=== PATIENT | male | born 1970 | race African-American/Black ===

== ENCOUNTER 2016-11-30 12:36 | Emergency (ER) | payer MEDICAID ==
[~2016-11-30] VITALS: Ht 172.7 cm; Wt 180.0 kg
[~2016-11-30 12:36] MED LIST: LACT20SO4 PO; LEVEMIR SQ; LISI-360 PO; METF500 PO; NOVORP2 SQ; TRAD5TAB PO
[2016-11-30 12:37] VITALS: BP 175/101; PULSE 72; RESP 16; TEMP 98.4; O2SAT 99
--- NOTE | 2016-11-30 12:42 | PD ---
Physical Exam Time Seen by Provider: 12:42 Narrative 46 y/o male here with L lower dental pain for one week. Vital signs reviewed. Seen at triage desk. Awaiting bed placement. Data Data Last Documented VS Vital Signs Date Time Temp Pulse Resp B/P (MAP) Pulse Ox O2 Delivery O2 Flow Rate FiO2 11/30/16 12:37 98.4 72 16 175/101 (125) 99 Room Air MDM Medical Record Reviewed: Yes Supervised Visit with DENICE: Danial Francois Nov 30, 2016 12:42
--- NOTE | 2016-11-30 14:57 | PD ---
HPI Chief Complaint: Oral / Dental Pain or Problem Time Seen by Provider: 14:51 Travel History International Travel<30 days: No Contact w/Intl Traveler<30days: No Traveled to known affect area: No History of Present Illness HPI 46-year-old Afro-[place] male with pain in the #20 and 21 tooth. Patient states the pain started about a week ago progressively gotten worse. He says he has sensitivity to hot and cold. Currently the pain is 8 out of 10. Patient having difficulty eating secondary to pain. He denies fever, chills, or difficulty swallowing. Patient has a dentist appointment on December 15. He has no known drug allergies. PFSH Past Medical History Cancer: No Cardiovascular Problems: Yes Diabetes: Yes Diminished Hearing: No Endocrine: No Genitourinary: No Hypertension: Yes Immune Disorder: No Musculoskeletal: No Neurologic: No Psychiatric: No Reproductive: No Respiratory: No PNEUMOCCOCAL Vaccine (Year): 2 Past Surgical History Abdominal Surgery: Yes (APPY) Appendectomy: Yes Other Surgery: Yes Social History Alcohol Use: Yes (rarely) Tobacco Use: No (20 yrs ago) Substance Use: No Allergies-Medications (Allergen,Severity, Reaction): Coded Allergies: No Known Allergies (Verified , 07/31/15) Reported Meds & Prescriptions Reported Meds & Active Scripts Active Lactulose 30 Ml Syrp 30 Ml PO TID PRN Lactulose 30 Ml Syrp 30 Ml PO TID 5 Days Reported Novolin R (Insulin Human Regular) 100 Units/Ml Inj 20 Units SQ DAILY Levemir (Insulin Detemir) Inj 30 Units SQ DAILY Tradjenta (Linagliptin) 5 Mg Tab 5 Mg PO DAILY Lisinopril 10 mg (Lisinopril) 10 Mg Tab 1 Tab PO DAILY Glucophage 500 mg (Metformin HCl) 500 Mg Tab 1,000 Mg PO DAILY Review of Systems Except as stated in HPI: all other systems reviewed are Neg General / Constitutional: No: Fever Eyes: No: Visual changes HENT: Positive: Dental Difficulties, No: Headaches, Vertigo, Lightheadedness, Sore Throat, Rhinitis, Rhinorrhea, Congestion, Nosebleed, Neck Stiffness, Neck Pain, Gingival Bleeding, Ear Discharge, Earache Cardiovascular: No: Chest Pain or Discomfort Respiratory: No: Shortness of Breath Gastrointestinal: No: Abdominal Pain Genitourinary: No: Dysuria Musculoskeletal: No: Pain Skin: No Rash Neurologic: No: Weakness Psychiatric: No: Depression Endocrine: No: Polydipsia Hematologic/Lymphatic: No: Easy Bruising Physical Exam Narrative GENERAL: Patient Is in mild distress SKIN: Warm and dry. Normal color. Normal turgor. No erythema. HEAD: Atraumatic. Normocephalic. Patient is tenderness along the left lower jaw without significant swelling. EYES: Pupils equal and round. No scleral icterus. No injection or drainage. ENT: No nasal bleeding or discharge. Mucous membranes pink and moist. Teeth actually appearing good condition. Pharynx is clear. Airway is patent. Patient has swelling along the left lower gingiva. NECK: Trachea midline. Supple nontender. CARDIOVASCULAR: Regular rate and rhythm. RESPIRATORY: No accessory muscle use. Clear to auscultation. Breath sounds equal bilaterally. MUSCULOSKELETAL: Extremities without clubbing, cyanosis, or edema. No obvious deformities. NEUROLOGICAL: Awake and alert. No obvious cranial nerve deficits. Motor grossly within normal limits. Five out of 5 muscle strength in the arms and legs. Normal speech. PSYCHIATRIC: Appropriate mood and affect; insight and judgment normal. Data Data Last Documented VS Vital Signs Date Time Temp Pulse Resp B/P (MAP) Pulse Ox O2 Delivery O2 Flow Rate FiO2 11/30/16 12:37 98.4 72 16 175/101 (125) 99 Room Air MDM Medical Decision Making Medical Screen Exam Complete: Yes Emergency Medical Condition: Yes Differential Diagnosis Dental caries. Dental pain. Dental abscess. Narrative Course Patient treated with Pen-Vee K 500 mg 4 times a day 10 days. Patient is given ibuprofen 600 mg 4 times a day #40. Patient is given acetaminophen 500 mg 2 tabs every 6 hours when necessary pain # 60. Patient is given Magic mouthwash every 2 hours as directed 120 mL's with 2 refills. Patient follow-up with his dentist as currently scheduled or return if symptoms worsen. Diagnosis Primary Impression: Dental abscess Referrals: Dentist Patient Instructions: Dental Abscess (ED), General Instructions Additional Instructions: Patient treated with Pen-Vee K 500 mg 4 times a day 10 days. Patient is given ibuprofen 600 mg 4 times a day #40. Patient is given acetaminophen 500 mg 2 tabs every 6 hours when necessary pain # 60. Patient is given Magic mouthwash every 2 hours as directed 120 mL's with 2 refills. Patient follow-up with his dentist as currently scheduled or return if symptoms worsen. Med/Other Pt SpecificInfo: Prescription(s) given Disposition: 01 DISCHARGE HOME Condition: Stable Yoandy Zheng Nov 30, 2016 14:57
[2016-11-30] MEDS ORDERED: MAGICADU2 SWISH-SPIT (14:58)
[2016-11-30] MEDS ORDERED: MAPA500T13 PO (14:58)
[2016-11-30] MEDS ORDERED: PENI500T PO (14:58)
[2016-11-30] MEDS ORDERED: IBUP-232 PO (14:58)
== END 2016-11-30 15:10 | disposition home or self-care (01) ==
LOC: NEPK 12:36
DX: K04.7 Periapical abscess without sinus (principal); E11.9 Type 2 diabetes mellitus without complications; I10 Essential (primary) hypertension; Z79.4 Long term (current) use of insulin; Z79.899 Other long term (current) drug therapy
CPT/HCPCS: 99284

== ENCOUNTER 2017-09-21 11:11 | Inpatient (IN) ==
[2017-09-21] MEDS ORDERED: Sod Chloride 0.9% Inj 1,000 ML IV.CONT SCH ×2 (15:45→19:00)
[2017-09-21] MEDS ORDERED: Sod Chloride 0.9% Inj 1,000 ML IV.SIG ONE ×2 (15:54→18:44)
--- NOTE | 2017-09-21 16:00 | ED ---
HPI General Chief Complaint: Abdominal Pain Stated Complaint: Abdominal pain Time Seen by Provider: 09/21/17 15:38 Source: patient, RN notes reviewed and old records reviewed Mode of arrival: ambulatory Limitations: no limitations History of Present Illness HPI narrative: The patient is a super morbidly obese diabetic male with a BMI of 50.8 history of hypertension and diabetes mellitus presenting with complaint of constipation and diffuse abdominal pain. On arrival his sugar was over 500. Claims he is compliant with medications and diet. Has been having constipation and nausea for the past 2 weeks. Has been taking mag citrate with minimal relief of symptoms. Denies smoking alcohol or drugs. Is able to tolerate p.o. intake and is asking actually asking for something to eat MD complaint: abdominal pain Onset (ago): week(s) Pain Consistency: intermittent Location: diffuse Severity: mild Quality: aching and fullness Radiation: none Relieving factors: bowel movement Exacerbating factors: movement Context: history of similar episodes Treatments prior to arrival: other (laxatives) Related Data Home Medications Medication Instructions Recorded Confirmed insulin detemir U-100 [Levemir 30 unit SUB-Q QPM 09/21/17 09/21/17 U-100 Insulin] insulin regular human [Novolin R 20 unit SUB-Q DAILY 09/21/17 09/21/17 Regular U-100 Insuln] lactulose 20 g PO TID 09/21/17 09/21/17 linagliptin [Tradjenta] 5 mg PO QAM 09/21/17 09/21/17 lisinopril 10 mg PO DAILY 09/21/17 09/21/17 metformin [Glucophage] 1,000 mg PO DAILY 09/21/17 09/21/17 Allergies Allergy/AdvReac Type Severity Reaction Status Date / Time No Known Allergies Allergy NONE Uncoded 09/21/17 15:55 Review of Systems ROS Unobtainable All other systems reviewed negative except as stated in HPI Constitutional Denies body ache(s), Reports fatigue, Denies fever(s), Denies headache(s), Reports malaise and Denies weakness ENT Reports system reviewed and no additional complaints, except as docu Respiratory Reports system reviewed and no additional complaints, except as docu Gastrointestinal Reports abdominal pain, Denies belching, Denies melena, Denies hematochezia, Reports change in bowel habits, Reports tenesmus, Denies cramping, Denies diarrhea, Reports nausea, Reports vomiting and Denies hematemesis Genitourinary Reports system reviewed and no additional complaints, except as [facility] Musculoskeletal Reports system reviewed and no additional complaints, except as [facility] Neurologic Reports system reviewed and no additional complaints, except as [facility] Endocrine Reports system reviewed and no additional complaints, except as docu, Reports fatigue, Reports polyphagia and Reports polydipsia [facility] Medical History Medical History Constipation (Acute) Diabetes mellitus (Acute) Hypertension (Acute) Obesity (Acute) Surgical History Surgical History History of appendectomy (Acute) Social History Social History Substance History: No History of Abuse Smoking Status: Former smoker How Often Do You Have a Drink Containing Alcohol: Never Recent Travel in [facility] within the Last 8 Weeks: No Recent Out of Country Travel within the Last 8 Weeks: No Immunization History Tetanus Immunization: <5 Years Hx Influenza Vaccine This Season: No Exam [facility] Head: normocephalic and atraumatic Nose: no nasal discharge and no epistaxis Mouth: moist mucous membranes Eyes Sclera: normal sclerae Pupils: PERRL Neck Neck: trachea midline and no JVD Resp Effort & Inspection: no use of accessory muscles Auscultation: clear to auscultation bilaterally Cardio Rate: regular rate Rhythm: regular rhythm Heart Sounds: no murmurs GI Inspection: non-distended, obesity and striae Palpation: soft and tender (diffuse) Percussion: normal to percussion Auscultation: normal bowel sounds Skin General: dry skin (warm) Neuro General: alert and awake Cranial Nerves: other Speech: speech normal Motor: no movement abnormalities noted Extrem General: normal to inspection, no clubbing, no cyanosis and no edema Left lower extremity: edema (LE BILATERALLY) Details: pitting and 2+ Psych Mood: congruent mood Affect: normal affect Judgment: judgment good Course Reevaluation(s) Reevaluation #1: Patient with marked hyperglycemia no signs of DKA. resting comfortably in no distress requesting something to eat Initial Documented Vital Signs Temperature 97.5 F L 07/19/18 11:22 Pulse Rate 93 H 09/21/17 11:22 Respiratory Rate 16 09/21/17 11:22 Blood Pressure 146/67 H 09/21/17 11:22 Pulse Oximetry 98 09/21/17 11:22 Last Documented Vital Signs Temperature 97.5 F L 09/21/17 11:22 Pulse Rate 88 09/21/17 15:51 Respiratory Rate 16 09/21/17 15:51 Blood Pressure 113/70 09/21/17 15:51 Pulse Oximetry 99 09/21/17 15:51 Critical Care Time Critical Care Time: Yes Total Critical Care Time: 30 Attestation: Aggregate critical care time was 30 minutes. Time to perform other separately billable procedures was not included in the critical care time. My time did not include minutes spent treating any other patients simultaneously or on activities that did not directly contribute to the patient's treatment. The services I provided to this patient were to treat and/or prevent clinically significant deterioration that could result in: permanent disability loss of current living style. I provided critical care services requiring my management, as noted below: Chart data review, documentation time, medication orders and management, vital sign assessments/reviewing monitor data, ordering and reviewing lab tests, ordering and interpreting/reviewing x-rays and diagnostic studies, care of the patient and discussion of the patient with the admitting physicians. Medical Decision Making MDM Narrative Medical decision making narrative: Patient with marked hyperglycemia no signs of DKA. He has a mildly elevated beta hydroxybutyrate however there is no anion gap. Like he he is in need of aggressive fluid resuscitation. Initial sugar 449 troponin negative lipase normal. No signs of infectious process on UA. CT was unremarkable. Stable vitals. Was started on fluids. Subcu insulin was given. Lab Data Lab results reviewed: Yes I reviewed the patient's lab results. Result diagrams: 09/21/17 17:30 09/21/17 17:30 Lab Results 09/21/17 09/21/17 09/21/17 Range/Units 17:30 17:30 17:30 WBC 8.7 (4.0-11.0) th/mm3 RBC 4.82 (4.50-5.90) mil/mm3 Hgb 14.6 (13.0-17.0) gm/dL Hct 44.2 (39.0-51.0) % MCV 91.7 (80.0-100.0) fL MCH 30.3 (27.0-34.0) pg MCHC 33.0 (32.0-36.0) % RDW 13.0 (11.6-17.2) % Plt Count 212 (150-450) th/mm3 MPV 10.5 (7.0-11.0) fL Neut % (Auto) 69.4 (16.0-70.0) % Lymph % (Auto) 20.6 (9.0-44.0) % Nye % (Auto) 7.9 (0.0-8.0) % Eos % (Auto) 1.6 (0.0-4.0) % Baso % (Auto) 0.5 (0.0-2.0) % Neut # (Auto) 6.0 (1.8-7.7) th/mm3 Lymph # (Auto) 1.8 (1.0-4.8) th/mm3 Nye # (Auto) 0.7 (0.0-0.9) th/mm3 Eos # (Auto) 0.1 (0.0-0.4) th/mm3 Baso # (Auto) 0.0 (0.0-0.2) th/mm3 WBC Differential . Differential Comment Auto diff final PT 10.5 (9.8-11.6) sec INR 1.0 Ratio APTT 19.5 L (24.3-30.1) sec Sodium 128 L (136-145) meq/L Potassium 4.9 (3.5-5.1) meq/L Chloride 90 L (98-107) meq/L Carbon Dioxide 25.1 (21.0-32.0) meq/L Anion Gap 13 (5-15) meq/L BUN 16 (7-18) mg/dL Creatinine 1.34 H (0.60-1.30) mg/dL Estimated GFR 70 L (>89) mL/min Random Glucose 449 H (74-106) mg/dL Calcium 9.8 (8.5-10.1) mg/dL Total Bilirubin 0.6 (0.2-1.0) mg/dL Direct Bilirubin 0.1 (0.0-0.2) mg/dL Indirect Bilirubin 0.5 (0.0-0.8) mg/dL AST 20 (15-37) U/L ALT 41 (12-78) U/L Alkaline Phosphatase 106 (45-117) U/L Troponin I Less than 0.02 L (0.02-0.05) ng/mL B-Natriuretic Peptide (0-100) pg/mL Total Protein 8.5 H (6.4-8.2) g/dL Albumin 3.8 (3.4-5.0) g/dL Lipase 107 (73-393) U/L Beta-Hydroxybutyric Acd 1.59 H (0.00-0.39) mmol/L Urine Color (Yellw/Straw) Urine Clarity (Clear) Urine pH (5.0-8.5) Ur Specific [place] (1.002-1.035) Urine Protein (Neg-Trace) mg/dL Urine Glucose (UA) (Negative) mg/dL Urine Ketones (Negative) mg/dL Urine Occult Blood (Negative) Urine Nitrate (Negative) Urine Bilirubin (Negative) Urine Urobilinogen (Less than 2) mg/dL Ur Leukocyte Esterase (Negative) Urine WBC (0-5) /hpf Ur Squamous Epith Cells (0-5) /hpf Micro UA Comment Urine Culture Comments 09/21/17 09/21/17 Range/Units 17:30 18:10 WBC (4.0-11.0) th/mm3 RBC (4.50-5.90) mil/mm3 Hgb (13.0-17.0) gm/dL Hct (39.0-51.0) % MCV (80.0-100.0) fL MCH (27.0-34.0) pg MCHC (32.0-36.0) % RDW (11.6-17.2) % Plt Count (150-450) th/mm3 MPV (7.0-11.0) fL Neut % (Auto) (16.0-70.0) % Lymph % (Auto) (9.0-44.0) % Nye % (Auto) (0.0-8.0) % Eos % (Auto) (0.0-4.0) % Baso % (Auto) (0.0-2.0) % Neut # (Auto) (1.8-7.7) th/mm3 Lymph # (Auto) (1.0-4.8) th/mm3 Nye # (Auto) (0.0-0.9) th/mm3 Eos # (Auto) (0.0-0.4) th/mm3 Baso # (Auto) (0.0-0.2) th/mm3 WBC Differential Differential Comment PT (9.8-11.6) sec INR Ratio APTT (24.3-30.1) sec Sodium (136-145) meq/L Potassium (3.5-5.1) meq/L Chloride (98-107) meq/L Carbon Dioxide (21.0-32.0) meq/L Anion Gap (5-15) meq/L BUN (7-18) mg/dL Creatinine (0.60-1.30) mg/dL Estimated GFR (>89) mL/min Random Glucose (74-106) mg/dL Calcium (8.5-10.1) mg/dL Total Bilirubin (0.2-1.0) mg/dL Direct Bilirubin (0.0-0.2) mg/dL Indirect Bilirubin (0.0-0.8) mg/dL AST (15-37) U/L ALT (12-78) U/L Alkaline Phosphatase (45-117) U/L Troponin I (0.02-0.05) ng/mL B-Natriuretic Peptide Less than 2 (0-100) pg/mL Total Protein (6.4-8.2) g/dL Albumin (3.4-5.0) g/dL Lipase (73-393) U/L Beta-Hydroxybutyric Acd (0.00-0.39) mmol/L Urine Color Yellow (Yellw/Straw) Urine Clarity Clear (Clear) Urine pH 6.0 (5.0-8.5) Ur Specific [place] 1.030 (1.002-1.035) Urine Protein Negative (Neg-Trace) mg/dL Urine Glucose (UA) 500 or greater (Negative) mg/dL Urine Ketones 20 (Negative) mg/dL Urine Occult Blood Negative (Negative) Urine Nitrate Negative (Negative) Urine Bilirubin Negative (Negative) Urine Urobilinogen Less than 2 (Less than 2) mg/dL Ur Leukocyte Esterase Negative (Negative) Urine WBC Less than 1 (0-5) /hpf Ur Squamous Epith Cells 1 (0-5) /hpf Micro UA Comment Culture not ind Urine Culture Comments Culture not ind Imaging Data Radiologist's impression: Abdomen/Pelvis CT 09/21/17 15:45 CONCLUSION: 1. Some diverticular disease of the descending and sigmoid colon without diverticulitis. 2. Otherwise negative. No acute intraperitoneal or pelvic process to explain current clinical symptoms ECG Data Attestation: I personally reviewed and interpreted this ECG as follows: Prior ECG tracings: available for review Interpretation: EKG obtained at 1630 on September 21, 2017 revealed ventricular rate of 79 bpm sinus rhythm left axis deviation OK interval 146 ms QTc 390 ms no signs of acute ischemia or nonspecific ST-T wave abnormality. Discharge Plan Discharge Disposition Patient Disposition: 30 Still Patient Discharge Condition Condition: Stable Discharge Details Diagnosis: Hyperglycemia due to type 2 diabetes mellitus, Constipation, Morbid obesity Physicians Team ED Provider: Yemi Londono Primary Care Provider: Primary Care Amanda Mccoy Attending Provider: Love Munoz Status ED Status: Admitted Observation Patient
--- NOTE | 2017-09-21 17:52 | CT ---
EXAM DATE: 09/21/2017 5:13 PM EDT AGE/SEX: 47 years / Male INDICATIONS: Abdominal pain. CLINICAL DATA: This is the patient's initial encounter. Patient reports that signs and symptoms have been present for 1 day and indicates a pain score of 7/10. MEDICAL/SURGICAL HISTORY: None. None. RADIATION DOSE: 35.89 CTDI (mGy) ; Patient body habitus COMPARISON: [facility] – [place], CT ABDOMEN & PELVIS W CONTRAST, 09/04/2010. . TECHNIQUE: Multiple contiguous axial images were obtained through the abdomen. Images were obtained using multiple row detector helical technique. Using automated exposure control and adjustment of the mA and/or kV according to patient size, radiation dose was kept as low as reasonably achievable to o btain optimal diagnostic quality images. DICOM format image data is available electronically for rev iew and comparison. FINDINGS: Lower Lungs: The visualized lower lungs are clear. Liver: The liver has a homogeneous density without space-occupying lesion. There is no dilation of th e biliary tree. Spleen: Homogeneous density without enlargement. Pancreas: Unremarkable without mass or calcification. Kidneys: Normal in size and shape. No evidence of mass or hydronephrosis. Adrenal Glands: Unremarkable. Aorta: The aorta and proximal iliac vessels are grossly unremarkable without aneurysmal dilation. Bowel/Mesentery: Some diverticular disease of the descending and sigmoid colon without diverticuliti s. Abdominal Wall: Intact. Retroperitoneum: No evidence of adenopathy in the retrocrural, para-aortic, or deep pelvic regions. Bladder: Contours are smooth. Reproductive Organs: No abnormal masses or calcifications seen. Inguinal: The inguinal region is unremarkable without evidence of adenopathy. Bony Structures: Unremarkable. CONCLUSION: 1. Some diverticular disease of the descending and sigmoid colon without diverticulitis. 2. Otherwise negative. No acute intraperitoneal or pelvic process to explain current clinical sympto ms Electronically signed by: Tone Daugherty MD 09/21/2017 5:51 PM EDT
[2017-09-21 17:53] LABS: Baso % (Auto) 0.5 % (0.0-2.0); Eos # (Auto) 0.1 th/mm3 (0.0-0.4); Eos % (Auto) 1.6 % (0.0-4.0); Hematocrit 44.2 % (39.0-51.0); Hemoglobin 14.6 gm/dL (13.0-17.0); Lymph # (Auto) 1.8 th/mm3 (1.0-4.8); Lymph % (Auto) 20.6 % (9.0-44.0); Mean Corpuscular Hemoglobin 30.3 pg (27.0-34.0); Mean Corpuscular Volume 91.7 fL (80.0-100.0); Mean Platelet Volume 10.5 fL (7.0-11.0); Mono # (Auto) 0.7 th/mm3 (0.0-0.9); Mono % (Auto) 7.9 % (0.0-8.0); Neut % (Auto) 69.4 % (16.0-70.0); Platelet Count 212 th/mm3 (150-450); Red Blood Count 4.82 mil/mm3 (4.50-5.90); White Blood Count 8.7 th/mm3 (4.0-11.0)
[2017-09-21 18:04] LABS: Activated Partial Thrombo Time 19.5 sec (24.3-30.1); Prothrombin Time 10.5 sec (9.8-11.6)
[2017-09-21 18:14] LABS: Alanine Aminotransferase 41 U/L (12-78); Albumin 3.8 g/dL (3.4-5.0); Anion Gap 13 meq/L (5-15); Aspartate Aminotransferase 20 U/L (15-37); Blood Urea Nitrogen 16 mg/dL (7-18); Calcium 9.8 mg/dL (8.5-10.1); Carbon Dioxide 25.1 meq/L (21.0-32.0); Chloride 90 meq/L (98-107); Glomerular Filtration Rate 70 mL/min (>89); Glucose,Random 449 mg/dL (74-106); Lipase 107 U/L (73-393); Potassium 4.9 meq/L (3.5-5.1); Sodium 128 meq/L (136-145)
[2017-09-21 18:16] LABS: Alkaline Phosphatase 106 U/L (45-117); Beta Hydroxybutyric Acid 1.59 mmol/L (0.00-0.39); Total Protein 8.5 g/dL (6.4-8.2)
[2017-09-21 18:31] LABS: Bilirubin,Urine Negative (Negative); Clarity,Urine Clear (Clear); Color,Urine Yellow (Yellw/Straw); Glucose,Urine (UA) 500 or Greater mg/dL (Negative); Leukocyte Esterase,Urine Negative (Negative); Nitrite,Urine Negative (Negative); Squamous Epithelial Cell,Urine 1 /hpf (0-5)
[2017-09-21] MEDS ORDERED: Dextrose 50% in Water 50 ML Vial IV.PUSH PRN (18:57)
[2017-09-21] MEDS ORDERED: Bisacodyl 10 MG Supp RECTAL PRN (18:58)
[2017-09-21] MEDS ORDERED: Acetaminophen 325 MG Tablet PO PRN (18:58)
[2017-09-21] MEDS ORDERED: Temazepam 15 MG Capsule PO PRN (18:58)
--- NOTE | 2017-09-21 19:01 | P.HPIM ---
History of Present Illness Primary Care Physician: No Primary Care Physician History of Present Illness: This is a 47-year-old male with a PMH of HTN, DM and Morbid Obesity who presented to the ER with complaints of abdominal pain and constipation x2wks. States he usually has daily bowel movements, but has had difficulty w/ BMs, worse over the last 4-5 days. Had small BM today, +passing gas. Abdominal pain is intermittent, moderate, 6/10, non-radiating, not associated w/ nausea/ vomiting. On arrival, BP 146/67, HR 93, O2 sat 98% on RA, Afebrile. CBC unremarkable. INR 1.0. Na 128. Creatinine 1.34, previously 1.72 on 2015. BS 449. Troponin negative. Lipase normal. UA negative. CT Abdomen/ Pelvis with diverticular disease but no diverticulitis, otherwise negative. Feeling better, asking to eat. - Diagnosis (1) Hyponatremia (2) ALICIA (acute kidney injury) (3) Abdominal pain (4) DM (diabetes mellitus) Review of Systems All other systems reviewed negative except as stated in HPI PMFSH - History History Provided By: Patient - Medical History Medical History: Medical History (Last Reviewed 09/21/17 @ 15:58 by Yemi Londono DO) Constipation Diabetes mellitus Hypertension Obesity - Surgical History Surgical History: Surgical History (Last Reviewed 09/21/17 @ 15:58 by Yemi Londono DO) History of appendectomy - Tobacco History Smoking Status: Former smoker - Alcohol History How Often Do You Have a Drink Containing Alcohol: Never - Substance Use History Substance History: No History of Abuse - Travel History Recent Travel in the [place] Within the Last 8 Weeks: No Recent Travel Out of the Country Within the Last 8 Weeks: No - Immunization History Tetanus Immunization: <5 Years Hx Influenza Vaccine This Season: No Medications and Allergies Active Medications: Active Medications Acetaminophen (Tylenol) 650 mg PO Q4H PRN PRN Reason: Temp > 100.4 Al Hydroxide/Mg Hydroxide (Milk Of Magnesia Liq) 30 ml PO Q12H PRN PRN Reason: Mild Constipation Bisacodyl (Dulcolax Supp) 10 mg RECTAL DAILY PRN PRN Reason: SEVERE CONSITIPATION Dextrose (D50w Vial) 50 ml IV.PUSH UNSCH PRN PRN Reason: PER HYPOGLYCEMIA PROTOCOL Glucagon (Glucagon Inj) 1 mg OTHER PRN PRN PRN Reason: for Hypoglycemia Protocol Sodium Chloride (Ns Inj) 1,000 mls @ 200 mls/hr IV.CONT .Q5H KATE Stop: 09/21/17 20:44 Last Admin: 09/21/17 17:37 Dose: 125 mls/hr Sodium Chloride (Ns Inj) 1,000 mls @ 100 mls/hr IV.CONT .Q10H KATE Insulin Aspart (Novolog Insulin Correctional Sugar Inj) 0 unit SQ ACHS KATE; Protocol Insulin Detemir (Levemir Inj) 30 unit SQ QPM KATE Lactulose (Lactulose Liq) ml PO TID KATE Metoclopramide HCl (Reglan Inj) 5 mg IV.PUSH Q6HR PRN; Protocol PRN Reason: NAUSEA OR VOMITING Senna/Docusate Sodium ([place]-Colace) 1 tab PO BID KATE Sennosides (Senokot) 17.2 mg PO Q12H PRN PRN Reason: Moderate Constipation Sodium Chloride (Ns Flush) 2 ml IV.FLUSH PRN PRN PRN Reason: FLUSH AFTER USING IV ACCESS Temazepam (Restoril) 15 mg PO HS PRN PRN Reason: INSOMNIA Allergies Allergy/AdvReac Type Severity Reaction Status Date / Time No Known Allergies Allergy NONE Uncoded 09/21/17 15:55 Home Medications Medication Instructions Recorded Confirmed Type insulin detemir U-100 [Levemir 30 unit SUB-Q QPM 09/21/17 09/21/17 History U-100 Insulin] insulin regular human [Novolin R 20 unit SUB-Q DAILY 09/21/17 09/21/17 History Regular U-100 Insuln] lactulose 20 g PO TID 09/21/17 09/21/17 History linagliptin [Tradjenta] 5 mg PO QAM 09/21/17 09/21/17 History lisinopril 10 mg PO DAILY 09/21/17 09/21/17 History metformin [Glucophage] 1,000 mg PO DAILY 09/21/17 09/21/17 History Exam Vital signs: Vital Signs 09/21/17 11:22 09/21/17 15:51 Temperature 97.5 F L Pulse Rate 93 H 88 Respiratory Rate 16 16 Blood Pressure 146/67 H 113/70 Pulse Oximetry 98 99 Intake & Output 09/21/17 09/21/17 09/22/17 06:59 18:59 06:59 Intake Total 1000 / 1000 Balance 1000 / 1000 Weight 158.757 kg Intake: IV 1000 / 1000 NS Inj 1,000 ML @ Wide Open IV. 1000 / 1000 SIG BOLUS ONE Rx#:[id number] Narrative: PE: GENERAL: Middle-aged morbidly obese black male in no acute distress. HEENT: PERRLA, EOMI. No scleral icterus or conjunctival pallor. No lid lag or facial droop. CARDIOVASCULAR: Regular rate and rhythm. No obvious murmurs to auscultation. No chest tenderness to palpation. RESPIRATORY: No obvious rhonchi or wheezing. Clear to auscultation. Breath sounds equal bilaterally. GASTROINTESTINAL: Abdomen soft, non-tender, nondistended. BS normal. MUSCULOSKELETAL: Extremities without clubbing, cyanosis, or edema. No obvious deformities. NEUROLOGICAL: Awake, alert and oriented x4. No focal neurologic deficits. Moving both upper and lower extremities spontaneously. Results - Labs CBC & Chem 7: 09/21/17 17:30 09/21/17 17:30 Labs: Short CBC 09/21/17 Range/Units 17:30 WBC 8.7 (4.0-11.0) th/mm3 Hgb 14.6 (13.0-17.0) gm/dL Hct 44.2 (39.0-51.0) % Plt Count 212 (150-450) th/mm3 BMP 09/21/17 17:30 Sodium 128 L Potassium 4.9 Chloride 90 L Carbon Dioxide 25.1 BUN 16 Creatinine 1.34 H Calcium 9.8 Cardiac Enzymes 09/21/17 Range/Units 17:30 Troponin I Less than 0.02 L (0.02-0.05) ng/mL Liver Function 09/21/17 Range/Units 17:30 Total Bilirubin 0.6 (0.2-1.0) mg/dL Direct Bilirubin 0.1 (0.0-0.2) mg/dL AST 20 (15-37) U/L ALT 41 (12-78) U/L Alkaline Phosphatase 106 (45-117) U/L Albumin 3.8 (3.4-5.0) g/dL Urine 09/21/17 Range/Units 18:10 Urine Color Yellow (Yellw/Straw) Urine Clarity Clear (Clear) Urine pH 6.0 (5.0-8.5) Ur Specific [place] 1.030 (1.002-1.035) Urine Protein Negative (Neg-Trace) mg/dL Urine Glucose (UA) 500 or greater (Negative) mg/dL - Imaging Impressions Abdomen/Pelvis CT 09/21/17 15:45 CONCLUSION: 1. Some diverticular disease of the descending and sigmoid colon without diverticulitis. 2. Otherwise negative. No acute intraperitoneal or pelvic process to explain current clinical symptoms Caprini VTE Risk Assessment Caprini VTE Risk Assessment: Moderate/High Risk (score >= 2) Caprini Risk Assessment Model: Point Value = 1 Point Value = 2 Point Value = 3 Point Value = 5 Age 41-60 Minor surgery BMI > 25 kg/m2 Swollen legs Varicose veins or History of unexplained or recurrent spontaneous Oral contraceptives or hormone replacement Sepsis (< 1 month) Serious lung disease, including pneumonia (< 1 month) Abnormal pulmonary function Acute myocardial infarction Congestive heart failure (< 1 month) History of inflammatory bowel disease Medical patient at bed rest Age 61-74 Arthroscopic surgery Major open surgery (> 45 min) Laparoscopic surgery (> 45 min) Malignancy Confined to bed (> 72 hours) Immobilizing plaster cast Central venous access Age >= 75 History of VTE Family history of VTE Factor V Leiden Prothrombin [id number] Lupus anticoagulant Anticardiolipin antibodies Elevated serum homocysteine Heparin-induced thrombocytopenia Other congenital or acquired thrombophilia Stroke (< 1 month) Elective arthroplasty Hip, pelvis, or leg fracture Acute spinal cord injury (< 1 month) Prophylaxis Regimen: Total Risk Factor Score Risk Level Prophylaxis Regimen 0-1 Low Early ambulation 2 Moderate Order ONE of the following: *Sequential Compression Device (SCD) *Heparin 5000 units SQ BID 3-4 Higher Order ONE of the following medications: *Heparin 5000 units SQ TID *Enoxaparin/Lovenox 40 mg SQ daily (WT < 150 kg, CrCl > 30 mL/min) *Enoxaparin/Lovenox 30 mg SQ daily (WT < 150 kg, CrCl > 10-29 mL/min) *Enoxaparin/Lovenox 30 mg SQ BID (WT < 150 kg, CrCl > 30 mL/min) AND/OR *Sequential Compression Device (SCD) 5 or more Highest Order ONE of the following medications: *Heparin 5000 units SQ TID (Preferred with Epidurals) *Enoxaparin/Lovenox 40 mg SQ daily (WT < 150 kg, CrCl > 30 mL/min) *Enoxaparin/Lovenox 30 mg SQ daily (WT < 150 kg, CrCl > 10-29 mL/min) *Enoxaparin/Lovenox 30 mg SQ BID (WT < 150 kg, CrCl > 30 mL/min) AND *Sequential Compression Device (SCD) Assessment and Plan - Assessment (1) Hyponatremia Code(s): E87.1 - Hypo-osmolality and hyponatremia Status: Acute (2) ALICIA (acute kidney injury) Code(s): N17.9 - Acute kidney failure, unspecified Status: Acute (3) Abdominal pain Code(s): R10.9 - Unspecified abdominal pain Status: Acute (4) DM (diabetes mellitus) Code(s): E11.9 - Type 2 diabetes mellitus without complications Status: Acute - Plan A/P: 1. Hyponatremia: Na 128, likely due to dehydration, IVF for hydration, repeat labs in am. Monitor I/O. U/a negative for UTI. 2. Abdominal Pain: w/ constipation, BM today, CT Abd/Pelvis w/ no acute findings, no evidence of obstruction, images reviewed by me. Analgesics/ antiemetics as needed. Lactulose for constipation, Dulcolax prn. 3. ALICIA: Creatinine 1.34, previously 1.72 on 07/31/15, IVF for hydration, repeat labs in am, monitor I/O. 4. DM: Uncontrolled. BS 449 on arrival, check Hgb A1c, sliding scale w/ Accu- cheks, resume home Levemir 5. DVT Prophylaxis: Heparin sq 6. Social work for d/c planning as needed. 7. Case discussed w/ ER physician at length, labs/records/imaging reviewed by me.
[2017-09-21] MEDS ORDERED: Morphine Inj 4 MG/ML Vial IV.PUSH PRN (19:36)
[2017-09-21] MEDS ORDERED: Insulin NovoLOG Aspart Correctional Sugar Inj SQ SCH (21:00)
[2017-09-21] MEDS: Senna/Docusate Sodium 8.6/50 MG Tablet PO SCH (22:45)
[2017-09-21] MEDS: Heparin - SQ 10,000 UNITS/ML Vial SQ SCH (22:45)
[2017-09-22 07:12] LABS: Baso % (Auto) 0.6 % (0.0-2.0); Eos # (Auto) 0.2 th/mm3 (0.0-0.4); Eos % (Auto) 2.8 % (0.0-4.0); Hematocrit 42.8 % (39.0-51.0); Hemoglobin 13.8 gm/dL (13.0-17.0); Lymph # (Auto) 1.6 th/mm3 (1.0-4.8); Lymph % (Auto) 23.2 % (9.0-44.0); Mean Corpuscular HGB Conc 32.3 % (32.0-36.0); Mean Corpuscular Hemoglobin 29.3 pg (27.0-34.0); Mean Corpuscular Volume 90.6 fL (80.0-100.0); Mono # (Auto) 0.6 th/mm3 (0.0-0.9); Mono % (Auto) 9.4 % (0.0-8.0); Neut # (Auto) 4.3 th/mm3 (1.8-7.7); Platelet Count 205 th/mm3 (150-450); Red Blood Count 4.72 mil/mm3 (4.50-5.90); Red Cell Distribution Width 13.3 % (11.6-17.2); White Blood Count 6.7 th/mm3 (4.0-11.0)
[2017-09-22 07:43] LABS: Alanine Aminotransferase 39 U/L (12-78); Albumin 3.5 g/dL (3.4-5.0); Alkaline Phosphatase 89 U/L (45-117); Anion Gap 10 meq/L (5-15); Aspartate Aminotransferase 17 U/L (15-37); Blood Urea Nitrogen 15 mg/dL (7-18); Calcium 8.7 mg/dL (8.5-10.1); Chloride 99 meq/L (98-107); Glomerular Filtration Rate Greater Than 89 mL/min (>89); Glucose,Random 344 mg/dL (74-106); Potassium 4.3 meq/L (3.5-5.1); Sodium 135 meq/L (136-145); Total Protein 7.7 g/dL (6.4-8.2)
[2017-09-22] MEDS: Senna/Docusate Sodium 8.6/50 MG Tablet PO SCH (08:46)
[2017-09-22] MEDS: Insulin NovoLOG Aspart Correctional Sugar Inj SQ SCH ×2 (08:46→12:22)
[2017-09-22] MEDS: Heparin - SQ 10,000 UNITS/ML Vial SQ SCH (08:49)
--- NOTE | 2017-09-22 10:27 | ECG ---
Date Performed: 09/21/2017 Time Performed: 16:30:00 PTAGE: 47 years EKG: Sinus rhythm NORMAL ECG PREVIOUS TRACING 07/25/2015 18.15 Since the previous tracing, no significant change noted DOCTOR: Denise Tran Interpretating Date/Time 09/22/2017 10:26:52
[2017-09-22 10:50] VITALS: RESP 16
[2017-09-22 12:21] VITALS: BP 129/61; PULSE 93; TEMP 97.8; O2SAT 99
--- NOTE | 2017-09-22 14:25 | P.PN ---
Subjective Interval history: Follow-up for constipation, diabetes mellitus. Patient is currently doing well. Sitting in his chair. No chest pain, shortness of breath, fever or chills. Physical Exam Vital signs: Vital Signs 09/21/17 15:51 09/21/17 20:00 09/22/17 00:00 Temperature 98.1 F 97.3 F L Pulse Rate 88 82 81 Respiratory Rate 16 18 18 Blood Pressure 113/70 120/76 106/46 L Pulse Oximetry 99 98 97 09/22/17 02:00 09/22/17 04:00 09/22/17 08:00 Temperature 97.6 F 97.4 F L Pulse Rate 84 82 Respiratory Rate 15 18 16 Blood Pressure 116/68 130/67 Pulse Oximetry 96 94 L 09/22/17 12:00 Temperature 97.8 F Pulse Rate 93 H Respiratory Rate 16 Blood Pressure 129/61 Pulse Oximetry 99 Intake & Output 09/21/17 09/22/17 09/22/17 18:59 06:59 18:59 Intake Total 1000 / 1000 100 / 100 Balance 1000 / 1000 100 / 100 Weight 158.757 kg 158.757 kg Intake: IV 1000 / 1000 NS Inj 1,000 ML @ Wide Open IV. 1000 / 1000 SIG BOLUS ONE Rx#:[id number] Oral 100 / 100 Other: # Voids 2 Date of Last Bowel Movement 09/21/17 09/22/17 Weight On Admission 158.757 kg Narrative: GENERAL: Alert, oriented 3, NAD, morbidly obese. SKIN: Warm and dry. HEAD: Normocephalic. EYES: No scleral icterus. No injection or drainage. NECK: Supple, trachea midline. No JVD or lymphadenopathy. CARDIOVASCULAR: Regular rate and rhythm without murmurs, gallops, or rubs. RESPIRATORY: Breath sounds equal bilaterally. No accessory muscle use. GASTROINTESTINAL: Abdomen soft, non-tender, nondistended. MUSCULOSKELETAL: No cyanosis, or edema. BACK: Nontender without obvious deformity. No CVA tenderness. Results - Labs CBC & Chem 7: 09/22/17 06:03 09/22/17 06:03 Laboratory Results - last 24 hr 09/21/17 09/21/17 09/21/17 17:30 17:30 17:30 WBC 8.7 RBC 4.82 Hgb 14.6 Hct 44.2 MCV 91.7 MCH 30.3 MCHC 33.0 RDW 13.0 Plt Count 212 MPV 10.5 Neut % (Auto) 69.4 Lymph % (Auto) 20.6 [place] % (Auto) 7.9 Eos % (Auto) 1.6 Baso % (Auto) 0.5 Neut # (Auto) 6.0 Lymph # (Auto) 1.8 [place] # (Auto) 0.7 Eos # (Auto) 0.1 Baso # (Auto) 0.0 WBC Differential . Differential Comment Auto diff final PT 10.5 INR 1.0 APTT 19.5 L Sodium 128 L Potassium 4.9 Chloride 90 L Carbon Dioxide 25.1 Anion Gap 13 BUN 16 Creatinine 1.34 H Estimated GFR 70 L POC Glucose Random Glucose 449 H Calcium 9.8 Total Bilirubin 0.6 Direct Bilirubin 0.1 Indirect Bilirubin 0.5 AST 20 ALT 41 Alkaline Phosphatase 106 Troponin I Less than 0.02 L B-Natriuretic Peptide Total Protein 8.5 H Albumin 3.8 Lipase 107 Beta-Hydroxybutyric Acd 1.59 H Urine Color Urine Clarity Urine pH Ur Specific [place] Urine Protein Urine Glucose (UA) Urine Ketones Urine Occult Blood Urine Nitrate Urine Bilirubin Urine Urobilinogen Ur Leukocyte Esterase Urine WBC Ur Squamous Epith Cells Micro UA Comment Urine Culture Comments 09/21/17 09/21/17 09/21/17 17:30 18:10 22:07 WBC RBC Hgb Hct MCV MCH MCHC RDW Plt Count MPV Neut % (Auto) Lymph % (Auto) [place] % (Auto) Eos % (Auto) Baso % (Auto) Neut # (Auto) Lymph # (Auto) [place] # (Auto) Eos # (Auto) Baso # (Auto) WBC Differential Differential Comment PT INR APTT Sodium Potassium Chloride Carbon Dioxide Anion Gap BUN Creatinine Estimated GFR POC Glucose 474 H* Random Glucose Calcium Total Bilirubin Direct Bilirubin Indirect Bilirubin AST ALT Alkaline Phosphatase Troponin I B-Natriuretic Peptide Less than 2 Total Protein Albumin Lipase Beta-Hydroxybutyric Acd Urine Color Yellow Urine Clarity Clear Urine pH 6.0 Ur Specific [place] 1.030 Urine Protein Negative Urine Glucose (UA) 500 or greater Urine Ketones 20 Urine Occult Blood Negative Urine Nitrate Negative Urine Bilirubin Negative Urine Urobilinogen Less than 2 Ur Leukocyte Esterase Negative Urine WBC Less than 1 Ur Squamous Epith Cells 1 Micro UA Comment Culture not ind Urine Culture Comments Culture not ind 09/22/17 09/22/17 09/22/17 06:03 06:03 08:22 WBC 6.7 RBC 4.72 Hgb 13.8 Hct 42.8 MCV 90.6 MCH 29.3 MCHC 32.3 RDW 13.3 Plt Count 205 MPV 11.0 Neut % (Auto) 64.0 Lymph % (Auto) 23.2 [place] % (Auto) 9.4 H Eos % (Auto) 2.8 Baso % (Auto) 0.6 Neut # (Auto) 4.3 Lymph # (Auto) 1.6 [place] # (Auto) 0.6 Eos # (Auto) 0.2 Baso # (Auto) 0.0 WBC Differential . Differential Comment Auto diff final PT INR APTT Sodium 135 L Potassium 4.3 Chloride 99 D Carbon Dioxide 26.0 Anion Gap 10 BUN 15 Creatinine 1.06 Estimated GFR Greater than 89 POC Glucose 358 H Random Glucose 344 H D Calcium 8.7 D Total Bilirubin 0.5 Direct Bilirubin Indirect Bilirubin AST 17 ALT 39 Alkaline Phosphatase 89 Troponin I B-Natriuretic Peptide Total Protein 7.7 D Albumin 3.5 Lipase Beta-Hydroxybutyric Acd Urine Color Urine Clarity Urine pH Ur Specific [place] Urine Protein Urine Glucose (UA) Urine Ketones Urine Occult Blood Urine Nitrate Urine Bilirubin Urine Urobilinogen Ur Leukocyte Esterase Urine WBC Ur Squamous Epith Cells Micro UA Comment Urine Culture Comments 09/22/17 12:17 WBC RBC Hgb Hct MCV MCH MCHC RDW Plt Count MPV Neut % (Auto) Lymph % (Auto) [place] % (Auto) Eos % (Auto) Baso % (Auto) Neut # (Auto) Lymph # (Auto) [place] # (Auto) Eos # (Auto) Baso # (Auto) WBC Differential Differential Comment PT INR APTT Sodium Potassium Chloride Carbon Dioxide Anion Gap BUN Creatinine Estimated GFR POC Glucose 394 H Random Glucose Calcium Total Bilirubin Direct Bilirubin Indirect Bilirubin AST ALT Alkaline Phosphatase Troponin I B-Natriuretic Peptide Total Protein Albumin Lipase Beta-Hydroxybutyric Acd Urine Color Urine Clarity Urine pH Ur Specific [place] Urine Protein Urine Glucose (UA) Urine Ketones Urine Occult Blood Urine Nitrate Urine Bilirubin Urine Urobilinogen Ur Leukocyte Esterase Urine WBC Ur Squamous Epith Cells Micro UA Comment Urine Culture Comments - Imaging Impressions Abdomen/Pelvis CT 09/21/17 15:45 CONCLUSION: 1. Some diverticular disease of the descending and sigmoid colon without diverticulitis. 2. Otherwise negative. No acute intraperitoneal or pelvic process to explain current clinical symptoms Assessment and Plan - Assessment (1) Hyponatremia Code(s): E87.1 - Hypo-osmolality and hyponatremia Status: Acute (2) ALICIA (acute kidney injury) Code(s): N17.9 - Acute kidney failure, unspecified Status: Acute (3) Abdominal pain Code(s): R10.9 - Unspecified abdominal pain Status: Acute (4) DM (diabetes mellitus) Code(s): E11.9 - Type 2 diabetes mellitus without complications Status: Acute - Plan This is a 47-year-old male with a PMH of HTN, DM and Morbid Obesity who presented to the ER with complaints of abdominal pain and constipation x2wks. States he usually has daily bowel movements, but has had difficulty w/ BMs, worse over the last 4-5 days. On admission, his BG was also elevated to about 449. Acute kidney injury Hyponatremia - resolved. Na 135. - Creatinine improved to 1.06 Diabetes mellitus - Patient has a PCP and has been to an [facility] before - Encouraged patient to watch his carb intake. - Continue home medications on discharge and follow up with PCP. Constipation - Had BM. He is encouraged to take Miralax or other laxatives at home. Full code. Discharge patient to home Condition on discharge: Improved Regular Diet as tolerated Ad Shelley activity Rx written: Miralax once a day Follow-up with primary care physician within one week.
[2017-09-22 16:15] LABS: Hemoglobin A1c 12.2 % (4.3-6.0)
[2017-09-22] MEDS ORDERED: Insulin Detemir Inj 1,000 UNIT/10 ML Vial SQ SCH (18:00)
== END 2017-09-22 17:27 | disposition home or self-care (01) ==
LOC: NEPC 11:11 → NEDA 11:11 → N06 19:59
PROVIDERS: ADMIT Hospitalist; ATTEND Hospitalist
DX: I10 Essential (primary) hypertension; K59.00 Constipation, unspecified; E86.0 Dehydration; Z79.4 Long term (current) use of insulin; E87.1 Hypo-osmolality and hyponatremia; E11.65 Type 2 diabetes mellitus with hyperglycemia; Z87.891 Personal history of nicotine dependence; E66.01 Morbid (severe) obesity due to excess calories; N17.9 Acute kidney failure, unspecified; Z68.43 Body mass index [BMI] 50.0-59.9, adult

== ENCOUNTER 2017-09-27 11:40 | Observation (INO) ==
[2017-09-27] MEDS ORDERED: Sod Chloride 0.9% Inj 1,000 ML IV.SIG ONE ×2 (14:58)
[2017-09-27] MEDS ORDERED: Dextrose 50% in Water 50 ML Vial IV.PUSH PRN ×2 (14:58→21:38)
--- NOTE | 2017-09-27 15:06 | ED ---
HPI General Chief Complaint: Abdominal Pain Stated Complaint: medical Time Seen by Provider: 09/27/17 14:46 Source: patient Mode of arrival: ambulatory Limitations: no limitations History of Present Illness HPI narrative: The patient is a 47-year-old -[place] male who presents to the emergency department via private vehicle for abdominal pain. The patient states he was recently admitted to the hospital for abdominal pain and hyperglycemia. The patient has been taking his novel and 18 units twice a day and his metformin 1000 mg twice a day. The patient states he took is normal in this morning and then developed periumbilical abdominal pain which is crampy, dull, associated 2 episodes of nausea and vomiting. The patient then checked his blood sugar and noted it was in the 500s. He does have a previous history of appendectomy, denies any history of pancreatitis or biliary colic secondary to gallstones. The patient does have a history of constipation, took magnesium citrate earlier today and had approximately 4-5 bowel movements. He denies any dysuria. The patient's primary physician is Dr. Colón. The symptoms are moderate and there are no current alleviating or exacerbating factors. MD complaint: abdominal pain Onset (ago): hour(s) Pain Consistency: intermittent Location: periumbilical Severity: moderate Severity scale (1-10): 5 Quality: cramping Radiation: none Migration to: no migration Relieving factors: nothing Exacerbating factors: nothing Associated symptoms: nausea and vomiting Related Data Home Medications Medication Instructions Recorded Confirmed insulin detemir U-100 [Levemir 30 unit SUB-Q QPM 09/21/17 09/27/17 U-100 Insulin] insulin regular human [Novolin R 20 unit SUB-Q DAILY 09/21/17 09/27/17 Regular U-100 Insuln] lactulose 20 g PO TID 09/21/17 09/27/17 linagliptin [Tradjenta] 5 mg PO QAM 09/21/17 09/27/17 lisinopril 10 mg PO DAILY 09/21/17 09/27/17 metformin [Glucophage] 1,000 mg PO DAILY 09/21/17 09/27/17 Previous Rx's Medication Instructions Recorded polyethylene glycol 3350 17 g PO DAILY 30 Days each 09/22/17 chlorhexidine gluconate [Peridex] 15 ml MUCOUS MEM BID #473 ml 09/27/17 penicillin V potassium 500 mg PO Q6H 10 Days #40 tab 09/27/17 Allergies Allergy/AdvReac Type Severity Reaction Status Date / Time No Known Allergies Allergy NONE Uncoded 09/21/17 15:55 Review of Systems Except as stated in HPI: all other systems reviewed are negative Constitutional Denies fever(s) Cardiovascular Denies chest pain Respiratory Denies dyspnea Gastrointestinal Reports abdominal pain, Reports cramping, Reports nausea and Reports vomiting Endocrine Reports polydipsia and Reports polyuria [facility] Medical History Medical History Constipation (Acute) Obesity (Acute) Hypertension (Acute) Diabetes mellitus (Acute) Surgical History Surgical History History of appendectomy (Acute) Social History Social History Substance History: No History of Abuse Second Hand Smoke Exposure: No Smoking Status: Never smoker Tobacco Type: Cigarettes How Often Do You Have a Drink Containing Alcohol: Never Recent Travel in [facility] within the Last 8 Weeks: No Recent Out of Country Travel within the Last 8 Weeks: No Exam Narrative Exam Narrative: GENERAL: Awake, alert, pleasant 47-year-old male who appears his stated age and is in no acute respiratory distress. The patient was initially sleeping in the left lateral decubitus position upon entering the room. SKIN: Focused skin assessment warm/dry. HEAD: Atraumatic. Normocephalic. EYES: Pupils equal and round. No scleral icterus. No injection or drainage. ENT: No nasal bleeding or discharge. Mucous membranes pink and moist. NECK: Trachea midline. No JVD. CARDIOVASCULAR: Regular, tachycardic with a heart rate of 100. RESPIRATORY: No accessory muscle use. Clear to auscultation. Breath sounds equal bilaterally. GASTROINTESTINAL: Abdomen soft, obese, no rebound tenderness. No guarding or rigidity. Negative Urena's. No epigastric tenderness. MUSCULOSKELETAL: No obvious deformities. No clubbing. No cyanosis. No edema. NEUROLOGICAL: Awake and alert. No obvious cranial nerve deficits. Motor grossly within normal limits. Normal speech. PSYCHIATRIC: Appropriate mood and affect; insight and judgment normal. Course Initial Documented Vital Signs Temperature 98.9 F 09/27/17 11:43 Pulse Rate 103 H 09/27/17 11:43 Respiratory Rate 22 09/27/17 11:43 Blood Pressure 90/50 L 09/27/17 11:43 Pulse Oximetry 98 09/27/17 11:43 Last Documented Vital Signs Temperature 98.9 F 09/27/17 11:43 Pulse Rate 87 09/27/17 18:20 Respiratory Rate 22 09/27/17 18:40 Blood Pressure 159/78 H 09/27/17 18:20 Pulse Oximetry 98 09/27/17 18:20 Medical Decision Making MDM Narrative Medical decision making narrative: IV was established, labs are drawn and sent, and the patient was placed on cardiac telemetry monitoring and continuous pulse oximetry monitoring. EKG was ordered and interpreted. I reviewed the EMR, the patient was recently hospitalized for hyperglycemia and abdominal pain. Patient had a negative CT of the abdomen and pelvis on 21 September, revealed diverticular disease but no acute diverticulitis. The patient's abdominal exam is benign. VBG was obtained and CMP was sent to lab for anion gap. The patient was administered 2 L of IV fluids. The patient's blood sugar was still elevated, therefore, the patient was administered insulin subcutaneously and the. The patient's blood sugar was evaluated and another hour, was still 356. He was dosed with another dose of insulin. The patient has no evidence of DKA. The patient does have hyperglycemia and apparent insulin resistance. The patient is complaining of a toothache, I inspected the dental pain, he has some right upper mid dental pain around tooth #4 and 5, but no palpable abscess. The patient will be placed on penicillin and Peridex. The patient had his blood sugar reevaluated, was 350, still has elevated blood sugar but no evidence of DKA. The patient appears to have insulin resistance. We had a discussion about 23 hour observation versus discharge home and him going back on his normal insulin regimen and following up with an outdoor adventure instructor. I had a long discussion with the patient regarding appropriate diet, calorie counting , carbohydrate counting, and avoiding sugary drinks and foods. The patient states he had chicken wings last night, he is advised not to each eye ate fried chicken wings. Patient also states he has been eating a lot of fruit watermelon , we had a discussion about appropriate food intake as they are high in sugar content. He is advised to drink more water, eat more baked fish and chicken, and eat more green leafy vegetables as well as calorie count. After a long discussion with the patient is agreed he would be a 23 hour observation, may benefit from discussion with nutrition. The patient does have elevated creatinine to 2.19 with potassium of 5.6 and persistent elevated blood glucose. The patient will be 23 hour observation. The on-call medical service was paged for 23 hour observation. Differential Diagnosis Differential Diagnosis: Differential diagnosis includes hyperglycemia, dehydration, DKA, hyperosmolar non-ketosis, electrolyte abnormality, acute kidney injury, constipation, medication side effect secondary to metformin. Lab Data Result diagrams: 09/27/17 15:40 09/27/17 15:40 Lab Results 09/27/17 09/27/17 09/27/17 Range/Units 15:30 15:40 15:40 WBC 9.2 (4.0-11.0) th/mm3 RBC 4.69 (4.50-5.90) mil/mm3 Hgb 14.1 (13.0-17.0) gm/dL Hct 42.8 (39.0-51.0) % MCV 91.4 (80.0-100.0) fL MCH 30.2 (27.0-34.0) pg MCHC 33.0 (32.0-36.0) % RDW 13.2 (11.6-17.2) % Plt Count 208 (150-450) th/mm3 MPV 10.4 (7.0-11.0) fL Neut % (Auto) 73.9 H (16.0-70.0) % Lymph % (Auto) 17.4 (9.0-44.0) % [place] % (Auto) 7.8 (0.0-8.0) % Eos % (Auto) 0.6 (0.0-4.0) % Baso % (Auto) 0.3 (0.0-2.0) % Neut # (Auto) 6.8 (1.8-7.7) th/mm3 Lymph # (Auto) 1.6 (1.0-4.8) th/mm3 [place] # (Auto) 0.7 (0.0-0.9) th/mm3 Eos # (Auto) 0.1 (0.0-0.4) th/mm3 Baso # (Auto) 0.0 (0.0-0.2) th/mm3 WBC Differential . Differential Comment Auto diff final Puncture Site Patient Temperature VBG pH (7.360-7.400) VBG pCO2 (44-48) mmHG VBG pO2 (35-40) mmHG VBG HCO3 (22-26) mmol/L VBG O2 Saturation (70-76) % VBG O2 Content (9.0-17.0) Vol % VBG Base Excess (-2-2) mmol/L VBG Carboxyhemoglobin (0-4) % VBG Methemoglobin (0-2) % Hemoglobin (12.0-16.0) G/DL O2 Delivery Device Inspired O2 % Critical Value Sodium (136-145) meq/L Potassium (3.5-5.1) meq/L Chloride (98-107) meq/L Carbon Dioxide (21.0-32.0) meq/L Anion Gap (5-15) meq/L BUN (7-18) mg/dL Creatinine (0.60-1.30) mg/dL Estimated GFR (>89) mL/min POC Glucose 511 H* (68-110) mg/dl Random Glucose (74-106) mg/dL Lactic Acid (0.4-2.0) mmol/L Calcium (8.5-10.1) mg/dL Magnesium 2.2 (1.5-2.5) mg/dL Total Bilirubin (0.2-1.0) mg/dL AST (15-37) U/L ALT (12-78) U/L Alkaline Phosphatase (45-117) U/L Troponin I (0.02-0.05) ng/mL Total Protein (6.4-8.2) g/dL Albumin (3.4-5.0) g/dL Lipase 108 (73-393) U/L Beta-Hydroxybutyric Acd (0.00-0.39) mmol/L Urine Color (Yellw/Straw) Urine Clarity (Clear) Urine pH (5.0-8.5) Ur Specific [place] (1.002-1.035) Urine Protein (Neg-Trace) mg/dL Urine Glucose (UA) (Negative) mg/dL Urine Ketones (Negative) mg/dL Urine Occult Blood (Negative) Urine Nitrate (Negative) Urine Bilirubin (Negative) Urine Urobilinogen (Less than 2) mg/dL Ur Leukocyte Esterase (Negative) Urine WBC (0-5) /hpf Ur Squamous Epith Cells (0-5) /hpf Hyaline Casts (0-3) /lpf Micro UA Comment Urine Culture Comments 09/27/17 09/27/17 09/27/17 Range/Units 15:40 15:40 16:04 WBC (4.0-11.0) th/mm3 RBC (4.50-5.90) mil/mm3 Hgb (13.0-17.0) gm/dL Hct (39.0-51.0) % MCV (80.0-100.0) fL MCH (27.0-34.0) pg MCHC (32.0-36.0) % RDW (11.6-17.2) % Plt Count (150-450) th/mm3 MPV (7.0-11.0) fL Neut % (Auto) (16.0-70.0) % Lymph % (Auto) (9.0-44.0) % [place] % (Auto) (0.0-8.0) % Eos % (Auto) (0.0-4.0) % Baso % (Auto) (0.0-2.0) % Neut # (Auto) (1.8-7.7) th/mm3 Lymph # (Auto) (1.0-4.8) th/mm3 [place] # (Auto) (0.0-0.9) th/mm3 Eos # (Auto) (0.0-0.4) th/mm3 Baso # (Auto) (0.0-0.2) th/mm3 WBC Differential Differential Comment Puncture Site Iv Patient Temperature 98.6 VBG pH 7.34 L (7.360-7.400) VBG pCO2 53 H (44-48) mmHG VBG pO2 30 L (35-40) mmHG VBG HCO3 28 H (22-26) mmol/L VBG O2 Saturation 45 L (70-76) % VBG O2 Content 10.7 (9.0-17.0) Vol % VBG Base Excess 2.6 H (-2-2) mmol/L VBG Carboxyhemoglobin 0.8 (0-4) % VBG Methemoglobin 0.5 (0-2) % Hemoglobin 16.9 H (12.0-16.0) G/DL O2 Delivery Device Room air Inspired O2 21 % Critical Value No Sodium 127 L (136-145) meq/L Potassium 5.6 H (3.5-5.1) meq/L Chloride 92 L (98-107) meq/L Carbon Dioxide 25.7 (21.0-32.0) meq/L Anion Gap 9 (5-15) meq/L BUN 30 H (7-18) mg/dL Creatinine 2.19 H (0.60-1.30) mg/dL Estimated GFR 40 L (>89) mL/min POC Glucose (68-110) mg/dl Random Glucose 501 H* (74-106) mg/dL Lactic Acid 2.2 H (0.4-2.0) mmol/L Calcium 9.3 (8.5-10.1) mg/dL Magnesium (1.5-2.5) mg/dL Total Bilirubin 0.6 (0.2-1.0) mg/dL AST 31 (15-37) U/L ALT 50 (12-78) U/L Alkaline Phosphatase 95 (45-117) U/L Troponin I Less than 0.02 L (0.02-0.05) ng/mL Total Protein 8.0 (6.4-8.2) g/dL Albumin 3.7 (3.4-5.0) g/dL Lipase (73-393) U/L Beta-Hydroxybutyric Acd 1.13 H (0.00-0.39) mmol/L Urine Color (Yellw/Straw) Urine Clarity (Clear) Urine pH (5.0-8.5) Ur Specific [place] (1.002-1.035) Urine Protein (Neg-Trace) mg/dL Urine Glucose (UA) (Negative) mg/dL Urine Ketones (Negative) mg/dL Urine Occult Blood (Negative) Urine Nitrate (Negative) Urine Bilirubin (Negative) Urine Urobilinogen (Less than 2) mg/dL Ur Leukocyte Esterase (Negative) Urine WBC (0-5) /hpf Ur Squamous Epith Cells (0-5) /hpf Hyaline Casts (0-3) /lpf Micro UA Comment Urine Culture Comments 09/27/17 09/27/17 09/27/17 Range/Units 16:12 17:30 18:16 WBC (4.0-11.0) th/mm3 RBC (4.50-5.90) mil/mm3 Hgb (13.0-17.0) gm/dL Hct (39.0-51.0) % MCV (80.0-100.0) fL MCH (27.0-34.0) pg MCHC (32.0-36.0) % RDW (11.6-17.2) % Plt Count (150-450) th/mm3 MPV (7.0-11.0) fL Neut % (Auto) (16.0-70.0) % Lymph % (Auto) (9.0-44.0) % [place] % (Auto) (0.0-8.0) % Eos % (Auto) (0.0-4.0) % Baso % (Auto) (0.0-2.0) % Neut # (Auto) (1.8-7.7) th/mm3 Lymph # (Auto) (1.0-4.8) th/mm3 [place] # (Auto) (0.0-0.9) th/mm3 Eos # (Auto) (0.0-0.4) th/mm3 Baso # (Auto) (0.0-0.2) th/mm3 WBC Differential Differential Comment Puncture Site Patient Temperature VBG pH (7.360-7.400) VBG pCO2 (44-48) mmHG VBG pO2 (35-40) mmHG VBG HCO3 (22-26) mmol/L VBG O2 Saturation (70-76) % VBG O2 Content (9.0-17.0) Vol % VBG Base Excess (-2-2) mmol/L VBG Carboxyhemoglobin (0-4) % VBG Methemoglobin (0-2) % Hemoglobin (12.0-16.0) G/DL O2 Delivery Device Inspired O2 % Critical Value Sodium (136-145) meq/L Potassium (3.5-5.1) meq/L Chloride (98-107) meq/L Carbon Dioxide (21.0-32.0) meq/L Anion Gap (5-15) meq/L BUN (7-18) mg/dL Creatinine (0.60-1.30) mg/dL Estimated GFR (>89) mL/min POC Glucose 480 H* 396 H 357 H (68-110) mg/dl Random Glucose (74-106) mg/dL Lactic Acid (0.4-2.0) mmol/L Calcium (8.5-10.1) mg/dL Magnesium (1.5-2.5) mg/dL Total Bilirubin (0.2-1.0) mg/dL AST (15-37) U/L ALT (12-78) U/L Alkaline Phosphatase (45-117) U/L Troponin I (0.02-0.05) ng/mL Total Protein (6.4-8.2) g/dL Albumin (3.4-5.0) g/dL Lipase (73-393) U/L Beta-Hydroxybutyric Acd (0.00-0.39) mmol/L Urine Color (Yellw/Straw) Urine Clarity (Clear) Urine pH (5.0-8.5) Ur Specific [place] (1.002-1.035) Urine Protein (Neg-Trace) mg/dL Urine Glucose (UA) (Negative) mg/dL Urine Ketones (Negative) mg/dL Urine Occult Blood (Negative) Urine Nitrate (Negative) Urine Bilirubin (Negative) Urine Urobilinogen (Less than 2) mg/dL Ur Leukocyte Esterase (Negative) Urine WBC (0-5) /hpf Ur Squamous Epith Cells (0-5) /hpf Hyaline Casts (0-3) /lpf Micro UA Comment Urine Culture Comments 09/27/17 09/27/17 Range/Units 18:25 19:41 WBC (4.0-11.0) th/mm3 RBC (4.50-5.90) mil/mm3 Hgb (13.0-17.0) gm/dL Hct (39.0-51.0) % MCV (80.0-100.0) fL MCH (27.0-34.0) pg MCHC (32.0-36.0) % RDW (11.6-17.2) % Plt Count (150-450) th/mm3 MPV (7.0-11.0) fL Neut % (Auto) (16.0-70.0) % Lymph % (Auto) (9.0-44.0) % [place] % (Auto) (0.0-8.0) % Eos % (Auto) (0.0-4.0) % Baso % (Auto) (0.0-2.0) % Neut # (Auto) (1.8-7.7) th/mm3 Lymph # (Auto) (1.0-4.8) th/mm3 [place] # (Auto) (0.0-0.9) th/mm3 Eos # (Auto) (0.0-0.4) th/mm3 Baso # (Auto) (0.0-0.2) th/mm3 WBC Differential Differential Comment Puncture Site Patient Temperature VBG pH (7.360-7.400) VBG pCO2 (44-48) mmHG VBG pO2 (35-40) mmHG VBG HCO3 (22-26) mmol/L VBG O2 Saturation (70-76) % VBG O2 Content (9.0-17.0) Vol % VBG Base Excess (-2-2) mmol/L VBG Carboxyhemoglobin (0-4) % VBG Methemoglobin (0-2) % Hemoglobin (12.0-16.0) G/DL O2 Delivery Device Inspired O2 % Critical Value Sodium (136-145) meq/L Potassium (3.5-5.1) meq/L Chloride (98-107) meq/L Carbon Dioxide (21.0-32.0) meq/L Anion Gap (5-15) meq/L BUN (7-18) mg/dL Creatinine (0.60-1.30) mg/dL Estimated GFR (>89) mL/min POC Glucose 355 H (68-110) mg/dl Random Glucose (74-106) mg/dL Lactic Acid (0.4-2.0) mmol/L Calcium (8.5-10.1) mg/dL Magnesium (1.5-2.5) mg/dL Total Bilirubin (0.2-1.0) mg/dL AST (15-37) U/L ALT (12-78) U/L Alkaline Phosphatase (45-117) U/L Troponin I (0.02-0.05) ng/mL Total Protein (6.4-8.2) g/dL Albumin (3.4-5.0) g/dL Lipase (73-393) U/L Beta-Hydroxybutyric Acd (0.00-0.39) mmol/L Urine Color Straw (Yellw/Straw) Urine Clarity Clear (Clear) Urine pH 5.0 (5.0-8.5) Ur Specific [place] 1.018 (1.002-1.035) Urine Protein Negative (Neg-Trace) mg/dL Urine Glucose (UA) 500 or greater (Negative) mg/dL Urine Ketones Trace (Negative) mg/dL Urine Occult Blood Negative (Negative) Urine Nitrate Negative (Negative) Urine Bilirubin Negative (Negative) Urine Urobilinogen Less than 2 (Less than 2) mg/dL Ur Leukocyte Esterase Negative (Negative) Urine WBC 1 (0-5) /hpf Ur Squamous Epith Cells 1 (0-5) /hpf Hyaline Casts 1 (0-3) /lpf Micro UA Comment Culture not ind Urine Culture Comments Culture not ind ECG Data EKG Prior to Arrival: No Attestation: I personally reviewed and interpreted this ECG as follows: Interpretation: EKG reveals normal sinus rhythm with a rate of 78. Inverted T waves in lead III. Discharge Plan Discharge Disposition Patient Disposition: 30 Still Patient Discharge Condition Condition: Stable Discharge Details Diagnosis: Hyperglycemia due to type 2 diabetes mellitus, ALICIA (acute kidney injury), Odontalgia, Acute hyperkalemia Physicians Team ED Provider: Awais Purvis Primary Care Provider: Primary Care Amanda Mccoy Rxs /Orders / Referrals /Forms Prescriptions: New penicillin V potassium 500 mg tablet 500 mg PO Q6H 10 Days Qty: 40 RF: 0 chlorhexidine gluconate [Peridex] 0.12 % mouthwash 15 ml MUCOUS MEM BID Qty: 473 RF: 0 No Action metformin [Glucophage] 500 mg Tablet 1,000 mg PO DAILY RF: 0 lisinopril 10 mg Tablet 10 mg PO DAILY RF: 0 insulin regular human [Novolin R Regular U-100 Insuln] 100 unit/mL Solution 20 unit SUB-Q DAILY RF: 0 insulin detemir U-100 [Levemir U-100 Insulin] 100 unit/mL Solution 30 unit SUB-Q QPM RF: 0 linagliptin [Tradjenta] 5 mg Tablet 5 mg PO QAM RF: 0 lactulose 20 gram/30 mL Solution 20 g PO TID RF: 0 polyethylene glycol 3350 17 gram Powder In Packet 17 g PO DAILY 30 Days RF: 11 Discharge Interventions Interventions: Vital Signs Last Done: 09/27/17 18:20 Status ED Status: Pending Admission
[2017-09-27 15:59] LABS: Baso % (Auto) 0.3 % (0.0-2.0); Eos # (Auto) 0.1 th/mm3 (0.0-0.4); Eos % (Auto) 0.6 % (0.0-4.0); Hematocrit 42.8 % (39.0-51.0); Hemoglobin 14.1 gm/dL (13.0-17.0); Lymph # (Auto) 1.6 th/mm3 (1.0-4.8); Lymph % (Auto) 17.4 % (9.0-44.0); Mean Corpuscular Hemoglobin 30.2 pg (27.0-34.0); Mean Corpuscular Volume 91.4 fL (80.0-100.0); Mean Platelet Volume 10.4 fL (7.0-11.0); Mono # (Auto) 0.7 th/mm3 (0.0-0.9); Mono % (Auto) 7.8 % (0.0-8.0); Neut # (Auto) 6.8 th/mm3 (1.8-7.7); Neut % (Auto) 73.9 % (16.0-70.0); Platelet Count 208 th/mm3 (150-450); Red Blood Count 4.69 mil/mm3 (4.50-5.90); Red Cell Distribution Width 13.2 % (11.6-17.2); White Blood Count 9.2 th/mm3 (4.0-11.0)
[2017-09-27 16:10] LABS: VBG Base Excess 2.6 mmol/L (-2-2); VBG Blood Gas Oxygen Content 10.7 Vol % (9.0-17.0); VBG PCO2 53 mmHG (44-48); VBG PH 7.34 (7.360-7.400); VBG PO2 30 mmHG (35-40)
[2017-09-27 16:50] LABS: Magnesium 2.2 mg/dL (1.5-2.5)
[2017-09-27 16:51] LABS: Alanine Aminotransferase 50 U/L (12-78); Albumin 3.7 g/dL (3.4-5.0); Alkaline Phosphatase 95 U/L (45-117); Anion Gap 9 meq/L (5-15); Aspartate Aminotransferase 31 U/L (15-37); Beta Hydroxybutyric Acid 1.13 mmol/L (0.00-0.39); Blood Urea Nitrogen 30 mg/dL (7-18); Calcium 9.3 mg/dL (8.5-10.1); Carbon Dioxide 25.7 meq/L (21.0-32.0); Chloride 92 meq/L (98-107); Glomerular Filtration Rate 40 mL/min (>89); Sodium 127 meq/L (136-145)
[2017-09-27 16:55] LABS: Potassium 5.6 meq/L (3.5-5.1)
[2017-09-27 16:57] LABS: Glucose,Random 501 mg/dL (74-106)
[2017-09-27] MEDS ORDERED: Acetaminophen 325 MG Tablet PO ONE (17:35)
[2017-09-27 18:50] LABS: Bilirubin,Urine Negative (Negative); Clarity,Urine Clear (Clear); Color,Urine Straw (Yellw/Straw); Glucose,Urine (UA) 500 or Greater mg/dL (Negative); Hyaline Casts,Urine 1 /lpf (0-3); Leukocyte Esterase,Urine Negative (Negative); Nitrite,Urine Negative (Negative); Specific Gravity,Urine 1.018 (1.002-1.035); Squamous Epithelial Cell,Urine 1 /hpf (0-5)
[2017-09-27] MEDS ORDERED: Acetaminophen 325 MG Tablet PO PRN (21:35)
[2017-09-27] MEDS: Heparin - SQ 10,000 UNITS/ML Vial SQ SCH (21:41)
--- NOTE | 2017-09-27 22:03 | ECG ---
Date Performed: 09/27/2017 Time Performed: 17:51:01 PTAGE: 47 years EKG: Sinus rhythm POSSIBLE LEFT ATRIAL ENLARGEMENT POSSIBLE LEFT VENTRICULAR HYPERTROPHY ABNORMAL ECG No significant c hange from prior electrocardiogram. PREVIOUS TRACING : 09/21/2017 16.30 DOCTOR: Rober Fontana Interpretating Date/Time 09/27/2017 22:01:54
--- NOTE | 2017-09-27 22:48 | P.HP ---
History of Present Illness Service: [facility] Primary Care Physician: No Primary Care Physician History of Present Illness: 47-year-old male with a past medical history significant for morbid obesity, diabetes mellitus (uncontrolled) and hypertension presents the emergency department for evaluation of abdominal pain. The patient was recently hospitalized for similar symptoms and was found to be hyperglycemic. He reports compliance with his insulin and metformin. Despite that his blood sugar was in the 500s at home. She department his blood sugar was 501. Despite treatment with IV and subcu insulin and IV fluids the patient's blood sugar did not drop below 355. He reports resolution of pain. He denies any chest pain or shortness of breath. No diarrhea. No fevers/chills. No lateralizing signs/symptoms. Review of Systems All other systems reviewed negative except as stated in [facility] - History History Provided By: Patient - Medical History Medical History: Medical History (Last Updated 09/27/17 @ 15:31 by Rosita Butler) Constipation (Acute) Obesity (Acute) Hypertension (Acute) Diabetes mellitus (Acute) - Surgical History Surgical History: Surgical History (Last Updated 09/27/17 @ 15:31 by Rosita Butler) History of appendectomy (Acute) - Tobacco History Second Hand Smoke Exposure: No Smoking Status: Never smoker Tobacco Type: Cigarettes - Alcohol History How Often Do You Have a Drink Containing Alcohol: Never - Substance Use History Substance History: No History of Abuse - Travel History Recent Travel in the [place] Within the Last 8 Weeks: No Recent Travel Out of the Country Within the Last 8 Weeks: No - Immunization History Tetanus Immunization: >5 Years Hx Influenza Vaccine This Season: No Medications and Allergies Active Medications: Active Medications Acetaminophen (Tylenol) 650 mg PO Q4H PRN PRN Reason: Temp > 100.4 Dextrose (D50w Vial) 50 ml IV.PUSH UNSCH PRN PRN Reason: PER HYPOGLYCEMIA PROTOCOL Glucagon (Glucagon Inj) 1 mg OTHER PRN PRN PRN Reason: for Hypoglycemia Protocol Heparin Sodium (Porcine) (Heparin Inj) 5,000 units SQ Q12H KATE Last Admin: 09/27/17 21:41 Dose: Not Given Sodium Chloride (Ns Inj) 1,000 mls @ 100 mls/hr IV.CONT .Q10H KATE Insulin Aspart (Novolog Insulin Correctional Sugar Inj) 0 unit SQ ACHS AND 3AM KATE; Protocol Insulin Detemir (Levemir Inj) 30 unit SQ QPM [facility] Insulin Human Regular (Novolin R Inj) 20 units SQ DAILY [facility] Lactulose (Lactulose Liq) 30 ml PO TID [facility] Lisinopril (Prinivil) 10 mg PO DAILY KATE Metformin HCl (Glucophage) 1,000 mg PO DAILY [facility] Non-Formulary Medication (Linagliptin [Tradjenta]) 5 mg PO QAM [facility] Ondansetron HCl (Zofran Odt) 4 mg PO Q6H PRN PRN Reason: NAUSEA OR VOMITING Polyethylene Glycol (Miralax) 17 gm PO DAILY [facility] Sodium Chloride (Ns Flush) 2 ml IV.FLUSH PRN PRN PRN Reason: FLUSH AFTER USING IV ACCESS Allergies Allergy/AdvReac Type Severity Reaction Status Date / Time No Known Allergies Allergy NONE Uncoded 09/21/17 15:55 Home Medications Medication Instructions Recorded Confirmed Type insulin detemir U-100 [Levemir 30 unit SUB-Q QPM 09/21/17 09/27/17 History U-100 Insulin] insulin regular human [Novolin R 20 unit SUB-Q DAILY 09/21/17 09/27/17 History Regular U-100 Insuln] lactulose 20 g PO TID 09/21/17 09/27/17 History linagliptin [Tradjenta] 5 mg PO QAM 09/21/17 09/27/17 History lisinopril 10 mg PO DAILY 09/21/17 09/27/17 History metformin [Glucophage] 1,000 mg PO DAILY 09/21/17 09/27/17 History Exam Vital signs: Vital Signs 09/27/17 11:43 09/27/17 15:33 09/27/17 15:34 Temperature 98.9 F Pulse Rate 103 H 71 77 Respiratory Rate 22 20 Blood Pressure 90/50 L 121/63 Pulse Oximetry 98 96 96 09/27/17 18:20 09/27/17 18:40 Temperature Pulse Rate 87 Respiratory Rate 22 22 Blood Pressure 159/78 H Pulse Oximetry 98 Intake & Output 09/27/17 09/27/17 09/28/17 06:59 18:59 06:59 Weight 158.757 kg Narrative: Gen.: No acute distress Head: Normocephalic. Atraumatic. EENT: Pupils equal round and reactive to light. Nose without drainage. Airway intact. Throat without injection. Cardiovascular: Regular rate and rhythm. No murmurs, rubs or gallops. Respiratory: Lungs clear to auscultation bilaterally. No wheezes or rhonchi. Abdomen: Soft, nontender, nondistended. No peritoneal signs. Musculoskeletal: No gross deformities. No edema. Skin: No obvious rashes or erythema. Neuro: Sensory and motor grossly intact. Cranial nerves II through XII grossly intact. Results - Labs CBC & Chem 7: 09/27/17 15:40 09/27/17 15:40 Labs: Laboratory Results - last 24 hr 09/27/17 09/27/17 09/27/17 15:30 15:40 15:40 WBC 9.2 RBC 4.69 Hgb 14.1 Hct 42.8 MCV 91.4 MCH 30.2 MCHC 33.0 RDW 13.2 Plt Count 208 MPV 10.4 Neut % (Auto) 73.9 H Lymph % (Auto) 17.4 [place] % (Auto) 7.8 Eos % (Auto) 0.6 Baso % (Auto) 0.3 Neut # (Auto) 6.8 Lymph # (Auto) 1.6 [place] # (Auto) 0.7 Eos # (Auto) 0.1 Baso # (Auto) 0.0 WBC Differential . Differential Comment Auto diff final Puncture Site Patient Temperature VBG pH VBG pCO2 VBG pO2 VBG HCO3 VBG O2 Saturation VBG O2 Content VBG Base Excess VBG Carboxyhemoglobin VBG Methemoglobin Hemoglobin O2 Delivery Device Inspired O2 Critical Value Sodium Potassium Chloride Carbon Dioxide Anion Gap BUN Creatinine Estimated GFR POC Glucose 511 H* Random Glucose Lactic Acid Calcium Magnesium 2.2 Total Bilirubin AST ALT Alkaline Phosphatase Troponin I Total Protein Albumin Lipase 108 Beta-Hydroxybutyric Acd Urine Color Urine Clarity Urine pH Ur Specific [place] Urine Protein Urine Glucose (UA) Urine Ketones Urine Occult Blood Urine Nitrate Urine Bilirubin Urine Urobilinogen Ur Leukocyte Esterase Urine WBC Ur Squamous Epith Cells Hyaline Casts Micro UA Comment Urine Culture Comments 09/27/17 09/27/17 09/27/17 15:40 15:40 16:04 WBC RBC Hgb Hct MCV MCH MCHC RDW Plt Count MPV Neut % (Auto) Lymph % (Auto) [place] % (Auto) Eos % (Auto) Baso % (Auto) Neut # (Auto) Lymph # (Auto) [place] # (Auto) Eos # (Auto) Baso # (Auto) WBC Differential Differential Comment Puncture Site Iv Patient Temperature 98.6 VBG pH 7.34 L VBG pCO2 53 H VBG pO2 30 L VBG HCO3 28 H VBG O2 Saturation 45 L VBG O2 Content 10.7 VBG Base Excess 2.6 H VBG Carboxyhemoglobin 0.8 VBG Methemoglobin 0.5 Hemoglobin 16.9 H O2 Delivery Device Room air Inspired O2 21 Critical Value No Sodium 127 L Potassium 5.6 H Chloride 92 L Carbon Dioxide 25.7 Anion Gap 9 BUN 30 H Creatinine 2.19 H Estimated GFR 40 L POC Glucose Random Glucose 501 H* Lactic Acid 2.2 H Calcium 9.3 Magnesium Total Bilirubin 0.6 AST 31 ALT 50 Alkaline Phosphatase 95 Troponin I Less than 0.02 L Total Protein 8.0 Albumin 3.7 Lipase Beta-Hydroxybutyric Acd 1.13 H Urine Color Urine Clarity Urine pH Ur Specific [place] Urine Protein Urine Glucose (UA) Urine Ketones Urine Occult Blood Urine Nitrate Urine Bilirubin Urine Urobilinogen Ur Leukocyte Esterase Urine WBC Ur Squamous Epith Cells Hyaline Casts Micro UA Comment Urine Culture Comments 09/27/17 09/27/17 09/27/17 16:12 17:30 18:16 WBC RBC Hgb Hct MCV MCH MCHC RDW Plt Count MPV Neut % (Auto) Lymph % (Auto) [place] % (Auto) Eos % (Auto) Baso % (Auto) Neut # (Auto) Lymph # (Auto) [place] # (Auto) Eos # (Auto) Baso # (Auto) WBC Differential Differential Comment Puncture Site Patient Temperature VBG pH VBG pCO2 VBG pO2 VBG HCO3 VBG O2 Saturation VBG O2 Content VBG Base Excess VBG Carboxyhemoglobin VBG Methemoglobin Hemoglobin O2 Delivery Device Inspired O2 Critical Value Sodium Potassium Chloride Carbon Dioxide Anion Gap BUN Creatinine Estimated GFR POC Glucose 480 H* 396 H 357 H Random Glucose Lactic Acid Calcium Magnesium Total Bilirubin AST ALT Alkaline Phosphatase Troponin I Total Protein Albumin Lipase Beta-Hydroxybutyric Acd Urine Color Urine Clarity Urine pH Ur Specific [place] Urine Protein Urine Glucose (UA) Urine Ketones Urine Occult Blood Urine Nitrate Urine Bilirubin Urine Urobilinogen Ur Leukocyte Esterase Urine WBC Ur Squamous Epith Cells Hyaline Casts Micro UA Comment Urine Culture Comments 09/27/17 09/27/17 18:25 19:41 WBC RBC Hgb Hct MCV MCH MCHC RDW Plt Count MPV Neut % (Auto) Lymph % (Auto) [place] % (Auto) Eos % (Auto) Baso % (Auto) Neut # (Auto) Lymph # (Auto) [place] # (Auto) Eos # (Auto) Baso # (Auto) WBC Differential Differential Comment Puncture Site Patient Temperature VBG pH VBG pCO2 VBG pO2 VBG HCO3 VBG O2 Saturation VBG O2 Content VBG Base Excess VBG Carboxyhemoglobin VBG Methemoglobin Hemoglobin O2 Delivery Device Inspired O2 Critical Value Sodium Potassium Chloride Carbon Dioxide Anion Gap BUN Creatinine Estimated GFR POC Glucose 355 H Random Glucose Lactic Acid Calcium Magnesium Total Bilirubin AST ALT Alkaline Phosphatase Troponin I Total Protein Albumin Lipase Beta-Hydroxybutyric Acd Urine Color Straw Urine Clarity Clear Urine pH 5.0 Ur Specific [place] 1.018 Urine Protein Negative Urine Glucose (UA) 500 or greater Urine Ketones Trace Urine Occult Blood Negative Urine Nitrate Negative Urine Bilirubin Negative Urine Urobilinogen Less than 2 Ur Leukocyte Esterase Negative Urine WBC 1 Ur Squamous Epith Cells 1 Hyaline Casts 1 Micro UA Comment Culture not ind Urine Culture Comments Culture not ind Caprini VTE Risk Assessment Caprini VTE Risk Assessment: No/Low Risk (score <= 1) Caprini Risk Assessment Model: Point Value = 1 Point Value = 2 Point Value = 3 Point Value = 5 Age 41-60 Minor surgery BMI > 25 kg/m2 Swollen legs Varicose veins or History of unexplained or recurrent spontaneous Oral contraceptives or hormone replacement Sepsis (< 1 month) Serious lung disease, including pneumonia (< 1 month) Abnormal pulmonary function Acute myocardial infarction Congestive heart failure (< 1 month) History of inflammatory bowel disease Medical patient at bed rest Age 61-74 Arthroscopic surgery Major open surgery (> 45 min) Laparoscopic surgery (> 45 min) Malignancy Confined to bed (> 72 hours) Immobilizing plaster cast Central venous access Age >= 75 History of VTE Family history of VTE Factor V Leiden Prothrombin [id number] Lupus anticoagulant Anticardiolipin antibodies Elevated serum homocysteine Heparin-induced thrombocytopenia Other congenital or acquired thrombophilia Stroke (< 1 month) Elective arthroplasty Hip, pelvis, or leg fracture Acute spinal cord injury (< 1 month) Prophylaxis Regimen: Total Risk Factor Score Risk Level Prophylaxis Regimen 0-1 Low Early ambulation 2 Moderate Order ONE of the following: *Sequential Compression Device (SCD) *Heparin 5000 units SQ BID 3-4 Higher Order ONE of the following medications: *Heparin 5000 units SQ TID *Enoxaparin/Lovenox 40 mg SQ daily (WT < 150 kg, CrCl > 30 mL/min) *Enoxaparin/Lovenox 30 mg SQ daily (WT < 150 kg, CrCl > 10-29 mL/min) *Enoxaparin/Lovenox 30 mg SQ BID (WT < 150 kg, CrCl > 30 mL/min) AND/OR *Sequential Compression Device (SCD) 5 or more Highest Order ONE of the following medications: *Heparin 5000 units SQ TID (Preferred with Epidurals) *Enoxaparin/Lovenox 40 mg SQ daily (WT < 150 kg, CrCl > 30 mL/min) *Enoxaparin/Lovenox 30 mg SQ daily (WT < 150 kg, CrCl > 10-29 mL/min) *Enoxaparin/Lovenox 30 mg SQ BID (WT < 150 kg, CrCl > 30 mL/min) AND *Sequential Compression Device (SCD) Assessment and Plan - Plan Assessment/plan: 1. Diabetes mellitus/hyperglycemia membership sales manager consulted as patient does not understand what foods he should be eating and his blood sugar remains uncontrolled despite medication compliance Continue Novolin and Levemir Holding home metformin for acute kidney injury Sliding-scale insulin Monitor blood glucose 2. Acute kidney injury Creatinine 2.2, baseline 1.0 IV fluid hydration Monitor renal function Blood sugar control as above 3. Hypertension Holding home lisinopril for [place] I Clonidine as needed FEN Diabetic diet Electrolytes: Hyperkalemia, monitor. Hyponatremia secondary to hyperglycemia NS at 150 cc/hour
[2017-09-28] MEDS: Sod Chloride 0.9% Inj 1,000 ML IV.CONT SCH ×4 (00:05→16:52)
[2017-09-28] MEDS: Insulin NovoLOG Aspart Correctional Sugar Inj SQ SCH ×5 (04:01→21:09)
--- NOTE | 2017-09-28 08:30 | P.PN ---
Subjective Interval history: Follow up for hyperglycemia, abdominal pain. The patient reports feeling better today. Reports his lower abdominal pain resolved after he was able to have BM. Denies any nausea/vomiting. Reports continued polyuria and polydipsia. He reports compliance with his medications although has difficulty recalling everything he is on for his diabetes. He states he does Novolin R 15 to 18u twice a day, and also takes levemir but cannot recall his dose. He also reports being on Tradjenta and metformin, unknown doses. He admits to dietary indiscretion. Denies any other medical complaints at this time. Physical Exam Vital signs: Vital Signs 09/27/17 11:43 09/27/17 15:33 09/27/17 15:34 Temperature 98.9 F Pulse Rate 103 H 71 77 Respiratory Rate 22 20 Blood Pressure 90/50 L 121/63 Pulse Oximetry 98 96 96 09/27/17 18:20 09/27/17 18:40 09/28/17 00:00 Temperature 97.8 F Pulse Rate 87 92 H Respiratory Rate 22 22 17 Blood Pressure 159/78 H 117/56 L Pulse Oximetry 98 96 09/28/17 04:00 09/28/17 07:05 Temperature 98.3 F 98.7 F Pulse Rate 84 77 Respiratory Rate 17 16 Blood Pressure 138/73 135/74 Pulse Oximetry 95 95 Intake & Output 09/27/17 09/28/17 09/28/17 18:59 06:59 18:59 Intake Total 3000 / 3000 Balance 3000 / 3000 Weight 158.757 kg Intake: IV 3000 / 3000 NS Inj 1,000 ML @ 150 mls/hr IV 1000 / 1000 .CONT .Q6H40M COUNT INCLUDES THE [facility] Rx#:[id number] NS Inj 1,000 ML @ Wide Open IV. 1999 SIG BOLUS ONE Rx#:[id number] Narrative: GENERAL: Well-nourished, well-developed morbidly obese AA male patient in NAD. SKIN: Warm and dry. No rash. HEENT: Normocephalic. Atraumatic. Pupils equal and round. Mucous membranes pink and moist. NECK: Supple. Trachea midline. CARDIOVASCULAR: Regular rate and rhythm. No murmur appreciated. RESPIRATORY: No accessory muscle use. Clear to auscultation. Breath sounds equal bilaterally. GASTROINTESTINAL: Abdomen soft, non-tender, nondistended. Normoactive bowel sounds x4. MUSCULOSKELETAL: No obvious deformities. Extremities without clubbing, cyanosis , or edema. NEUROLOGICAL: Awake and alert. No obvious cranial nerve deficits. Motor grossly within normal limits. Moving all extremities spontaneously. Normal speech. PSYCHIATRIC: Appropriate mood and affect; insight and judgment normal. Results - Labs CBC & Chem 7: 09/27/17 15:40 09/27/17 15:40 Laboratory Results - last 24 hr 09/27/17 09/27/17 09/27/17 15:30 15:40 15:40 WBC 9.2 RBC 4.69 Hgb 14.1 Hct 42.8 MCV 91.4 MCH 30.2 MCHC 33.0 RDW 13.2 Plt Count 208 MPV 10.4 Neut % (Auto) 73.9 H Lymph % (Auto) 17.4 [place] % (Auto) 7.8 Eos % (Auto) 0.6 Baso % (Auto) 0.3 Neut # (Auto) 6.8 Lymph # (Auto) 1.6 [place] # (Auto) 0.7 Eos # (Auto) 0.1 Baso # (Auto) 0.0 WBC Differential . Differential Comment Auto diff final Puncture Site Patient Temperature VBG pH VBG pCO2 VBG pO2 VBG HCO3 VBG O2 Saturation VBG O2 Content VBG Base Excess VBG Carboxyhemoglobin VBG Methemoglobin Hemoglobin O2 Delivery Device Inspired O2 Critical Value Sodium Potassium Chloride Carbon Dioxide Anion Gap BUN Creatinine Estimated GFR POC Glucose 511 H* Random Glucose Lactic Acid Calcium Magnesium 2.2 Total Bilirubin AST ALT Alkaline Phosphatase Troponin I Total Protein Albumin Lipase 108 Beta-Hydroxybutyric Acd Urine Color Urine Clarity Urine pH Ur Specific [place] Urine Protein Urine Glucose (UA) Urine Ketones Urine Occult Blood Urine Nitrate Urine Bilirubin Urine Urobilinogen Ur Leukocyte Esterase Urine WBC Ur Squamous Epith Cells Hyaline Casts Micro UA Comment Urine Culture Comments 09/27/17 09/27/17 09/27/17 15:40 15:40 16:04 WBC RBC Hgb Hct MCV MCH MCHC RDW Plt Count MPV Neut % (Auto) Lymph % (Auto) [place] % (Auto) Eos % (Auto) Baso % (Auto) Neut # (Auto) Lymph # (Auto) [place] # (Auto) Eos # (Auto) Baso # (Auto) WBC Differential Differential Comment Puncture Site Iv Patient Temperature 98.6 VBG pH 7.34 L VBG pCO2 53 H VBG pO2 30 L VBG HCO3 28 H VBG O2 Saturation 45 L VBG O2 Content 10.7 VBG Base Excess 2.6 H VBG Carboxyhemoglobin 0.8 VBG Methemoglobin 0.5 Hemoglobin 16.9 H O2 Delivery Device Room air Inspired O2 21 Critical Value No Sodium 127 L Potassium 5.6 H Chloride 92 L Carbon Dioxide 25.7 Anion Gap 9 BUN 30 H Creatinine 2.19 H Estimated GFR 40 L POC Glucose Random Glucose 501 H* Lactic Acid 2.2 H Calcium 9.3 Magnesium Total Bilirubin 0.6 AST 31 ALT 50 Alkaline Phosphatase 95 Troponin I Less than 0.02 L Total Protein 8.0 Albumin 3.7 Lipase Beta-Hydroxybutyric Acd 1.13 H Urine Color Urine Clarity Urine pH Ur Specific [place] Urine Protein Urine Glucose (UA) Urine Ketones Urine Occult Blood Urine Nitrate Urine Bilirubin Urine Urobilinogen Ur Leukocyte Esterase Urine WBC Ur Squamous Epith Cells Hyaline Casts Micro UA Comment Urine Culture Comments 09/27/17 09/27/17 09/27/17 16:12 17:30 18:16 WBC RBC Hgb Hct MCV MCH MCHC RDW Plt Count MPV Neut % (Auto) Lymph % (Auto) [place] % (Auto) Eos % (Auto) Baso % (Auto) Neut # (Auto) Lymph # (Auto) [place] # (Auto) Eos # (Auto) Baso # (Auto) WBC Differential Differential Comment Puncture Site Patient Temperature VBG pH VBG pCO2 VBG pO2 VBG HCO3 VBG O2 Saturation VBG O2 Content VBG Base Excess VBG Carboxyhemoglobin VBG Methemoglobin Hemoglobin O2 Delivery Device Inspired O2 Critical Value Sodium Potassium Chloride Carbon Dioxide Anion Gap BUN Creatinine Estimated GFR POC Glucose 480 H* 396 H 357 H Random Glucose Lactic Acid Calcium Magnesium Total Bilirubin AST ALT Alkaline Phosphatase Troponin I Total Protein Albumin Lipase Beta-Hydroxybutyric Acd Urine Color Urine Clarity Urine pH Ur Specific [place] Urine Protein Urine Glucose (UA) Urine Ketones Urine Occult Blood Urine Nitrate Urine Bilirubin Urine Urobilinogen Ur Leukocyte Esterase Urine WBC Ur Squamous Epith Cells Hyaline Casts Micro UA Comment Urine Culture Comments 09/27/17 09/27/17 09/28/17 18:25 19:41 03:55 WBC RBC Hgb Hct MCV MCH MCHC RDW Plt Count MPV Neut % (Auto) Lymph % (Auto) [place] % (Auto) Eos % (Auto) Baso % (Auto) Neut # (Auto) Lymph # (Auto) [place] # (Auto) Eos # (Auto) Baso # (Auto) WBC Differential Differential Comment Puncture Site Patient Temperature VBG pH VBG pCO2 VBG pO2 VBG HCO3 VBG O2 Saturation VBG O2 Content VBG Base Excess VBG Carboxyhemoglobin VBG Methemoglobin Hemoglobin O2 Delivery Device Inspired O2 Critical Value Sodium Potassium Chloride Carbon Dioxide Anion Gap BUN Creatinine Estimated GFR POC Glucose 355 H 385 H Random Glucose Lactic Acid Calcium Magnesium Total Bilirubin AST ALT Alkaline Phosphatase Troponin I Total Protein Albumin Lipase Beta-Hydroxybutyric Acd Urine Color Straw Urine Clarity Clear Urine pH 5.0 Ur Specific [place] 1.018 Urine Protein Negative Urine Glucose (UA) 500 or greater Urine Ketones Trace Urine Occult Blood Negative Urine Nitrate Negative Urine Bilirubin Negative Urine Urobilinogen Less than 2 Ur Leukocyte Esterase Negative Urine WBC 1 Ur Squamous Epith Cells 1 Hyaline Casts 1 Micro UA Comment Culture not ind Urine Culture Comments Culture not ind Assessment and Plan - Plan 47-year-old male with a past medical history significant for morbid obesity, diabetes mellitus (uncontrolled) and hypertension presents the ED for evaluation of abdominal pain. The patient was recently hospitalized for similar symptoms and was found to be hyperglycemic. He reports compliance with his insulin and metformin. Despite that his blood sugar was in the 500s at home. In the ER, his blood sugar was 501. Hyperglycemia with uncontrolled Diabetes mellitus: acute. BG 501 upon arrival. S /p IVF boluses with IV and sq insulin in the ED -hematology nurse educator and writing manager consulted as patient does not understand what foods he should be eating and his blood sugar remains uncontrolled despite medication compliance -Continue Novolin and Levemir -Holding home metformin for acute kidney injury -Medium dose Sliding-scale insulin -Monitor blood glucose -Consult endocrinology Acute kidney injury: Creatinine 2.2, baseline 1.0. Suspect secondary to dehydration with polyuria due to uncontrolled blood glucose. -Continue IV fluid hydration -Avoid nephrotoxins, holding lisinopril and metformin -Monitor renal function Hyperglycemia induced Hyponatremia: acute -giving IVF -should improve with correction of hyperglycemia -repeat labs pending Hypertension: BP fairly well controlled -Holding home lisinopril for ALICIA -Clonidine as needed DVT Prophylaxis: Heparin sq Discharge Planning: Possible discharge tomorrow if BG better controlled and ALICIA improves.
[2017-09-28] MEDS: Polyethylene Glycol 3350 17 GM Packet PO SCH (08:45)
[2017-09-28] MEDS: Heparin - SQ 10,000 UNITS/ML Vial SQ SCH ×2 (08:46→21:10)
[2017-09-28] MEDS ORDERED: Lisinopril 10 MG Tablet PO SCH (09:00)
[2017-09-28] MEDS ORDERED: LINAGLIPTIN 5 MG PO SCH (09:00)
[2017-09-28 13:26] LABS: Baso % (Auto) 0.3 % (0.0-2.0); Eos # (Auto) 0.1 th/mm3 (0.0-0.4); Eos % (Auto) 1.2 % (0.0-4.0); Hematocrit 41.3 % (39.0-51.0); Hemoglobin 13.8 gm/dL (13.0-17.0); Lymph # (Auto) 1.5 th/mm3 (1.0-4.8); Lymph % (Auto) 20.4 % (9.0-44.0); Mean Corpuscular HGB Conc 33.4 % (32.0-36.0); Mean Corpuscular Hemoglobin 30.4 pg (27.0-34.0); Mean Corpuscular Volume 91.1 fL (80.0-100.0); Mean Platelet Volume 10.6 fL (7.0-11.0); Mono # (Auto) 0.8 th/mm3 (0.0-0.9); Mono % (Auto) 10.1 % (0.0-8.0); Neut # (Auto) 5.1 th/mm3 (1.8-7.7); Platelet Count 225 th/mm3 (150-450); Red Blood Count 4.53 mil/mm3 (4.50-5.90); Red Cell Distribution Width 13.1 % (11.6-17.2); White Blood Count 7.5 th/mm3 (4.0-11.0)
[2017-09-28 13:51] LABS: Calcium 9.4 mg/dL (8.5-10.1); Carbon Dioxide 25.4 meq/L (21.0-32.0); Potassium 4.9 meq/L (3.5-5.1)
[2017-09-28] MEDS: Insulin Detemir Inj 1,000 UNIT/10 ML Vial SQ SCH (18:13)
[2017-09-28 22:31] LABS: Hemoglobin A1c 13.9 % (4.3-6.0)
[2017-09-29] MEDS: Sod Chloride 0.9% Inj 1,000 ML IV.CONT SCH ×4 (00:10→19:58)
[2017-09-29] MEDS: Insulin NovoLOG Aspart Correctional Sugar Inj SQ SCH ×5 (03:31→21:33)
--- NOTE | 2017-09-29 08:35 | P.PN ---
Subjective Interval history: Follow-up for hyperglycemia. The patient reports overall feeling better today. Blood sugars much improved, currently 164. He admits that he may have been out of his Levemir and was only taking the Novolin R. He denies any headache, lightheadedness, chest pain, shortness of breath, abdominal pain, or urinary complaints. Physical Exam Vital signs: Vital Signs 09/28/17 12:00 09/28/17 16:00 09/28/17 19:16 Temperature 98.6 F 98.0 F 97.9 F Pulse Rate 86 76 78 Respiratory Rate 16 16 16 Blood Pressure 132/81 179/86 H 136/76 Pulse Oximetry 99 100 98 09/28/17 23:01 09/29/17 03:25 Temperature 97.8 F 97.9 F Pulse Rate 85 67 Respiratory Rate 17 16 Blood Pressure 127/78 150/97 H Pulse Oximetry 97 98 Intake & Output 09/28/17 09/29/17 09/29/17 18:59 06:59 18:59 Intake Total 1999 1000 / 1000 Balance 1999 1000 / 1000 Intake: IV 1999 1000 / 1000 NS Inj 1,000 ML @ 150 mls/hr IV 1999 1000 / 1000 .CONT .Q6H40M [facility] Rx#:[id number] Other: # Voids 4 Date of Last Bowel Movement 09/28/17 Narrative: GENERAL: Well-nourished, well-developed morbidly obese pleasant AA male patient in [facility]. SKIN: Warm and dry. No rash. HEENT: Normocephalic. Atraumatic. Pupils equal and round. Mucous membranes pink and moist. NECK: Supple. Trachea midline. CARDIOVASCULAR: Regular rate and rhythm. No murmur appreciated. RESPIRATORY: No accessory muscle use. Clear to auscultation. Breath sounds equal bilaterally. GASTROINTESTINAL: Abdomen soft, non-tender, nondistended. Normoactive bowel sounds x4. MUSCULOSKELETAL: No obvious deformities. Extremities without clubbing, cyanosis , or edema. NEUROLOGICAL: Awake and alert. No obvious cranial nerve deficits. Motor grossly within normal limits. Moving all extremities spontaneously. Normal speech. PSYCHIATRIC: Appropriate mood and affect; insight and judgment normal. Results - Labs CBC & Chem 7: 09/28/17 12:07 09/28/17 12:07 Laboratory Results - last 24 hr 07/09/28/17 09/28/17 08:34 12:07 12:07 WBC 7.5 RBC 4.53 Hgb 13.8 Hct 41.3 MCV 91.1 MCH 30.4 MCHC 33.4 RDW 13.1 Plt Count 225 MPV 10.6 Neut % (Auto) 68.0 Lymph % (Auto) 20.4 [place] % (Auto) 10.1 H Eos % (Auto) 1.2 Baso % (Auto) 0.3 Neut # (Auto) 5.1 Lymph # (Auto) 1.5 [place] # (Auto) 0.8 Eos # (Auto) 0.1 Baso # (Auto) 0.0 WBC Differential . Differential Comment Auto diff final Sodium 133 L Potassium 4.9 Chloride 99 Carbon Dioxide 25.4 Anion Gap 9 BUN 22 H Creatinine 1.13 Estimated GFR 85 L POC Glucose 342 H Random Glucose 329 H D Hemoglobin A1c Calcium 9.4 09/28/17 09/28/17 09/28/17 12:07 12:45 17:49 WBC RBC Hgb Hct MCV MCH MCHC RDW Plt Count MPV Neut % (Auto) Lymph % (Auto) [place] % (Auto) Eos % (Auto) Baso % (Auto) Neut # (Auto) Lymph # (Auto) [place] # (Auto) Eos # (Auto) Baso # (Auto) WBC Differential Differential Comment Sodium Potassium Chloride Carbon Dioxide Anion Gap BUN Creatinine Estimated GFR POC Glucose 321 H 310 H Random Glucose Hemoglobin A1c 13.9 H Calcium 09/28/17 09/29/17 20:25 03:09 WBC RBC Hgb Hct MCV MCH MCHC RDW Plt Count MPV Neut % (Auto) Lymph % (Auto) [place] % (Auto) Eos % (Auto) Baso % (Auto) Neut # (Auto) Lymph # (Auto) [place] # (Auto) Eos # (Auto) Baso # (Auto) WBC Differential Differential Comment Sodium Potassium Chloride Carbon Dioxide Anion Gap BUN Creatinine Estimated GFR POC Glucose 294 H 137 H Random Glucose Hemoglobin A1c Calcium Assessment and Plan - Plan 47-year-old male with a past medical history significant for morbid obesity, diabetes mellitus (uncontrolled) and hypertension presents the ED for evaluation of abdominal pain. The patient was recently hospitalized for similar symptoms and was found to be hyperglycemic. He reports compliance with his insulin and metformin. Despite that his blood sugar was in the 500s at home. In the ER, his blood sugar was 501. Hyperglycemia with uncontrolled Diabetes mellitus: acute. BG 501 upon arrival. S /p IVF boluses with IV and sq insulin in the ED. Patient admits he may have been out of Levemir. -informatics educator and apron trimmer consulted as patient does not understand what foods he should be eating and his blood sugar remains uncontrolled despite medication compliance -Continue Novolin R 20u bid and Levemir 30u hs -Holding home metformin for acute kidney injury -Medium dose Sliding-scale insulin -Monitor blood glucose, improving -Consulted endocrinology, appreciate assistance Acute kidney injury: Creatinine 2.2, baseline 1.0. Suspect secondary to dehydration with polyuria due to uncontrolled blood glucose. -Continue IV fluid hydration -Avoid nephrotoxins, holding lisinopril and metformin -Monitor renal function -Repeat BMP much improved, Cr 1.13, restart lisinopril Hyperglycemia induced Hyponatremia: acute -giving IVF -should improve with correction of hyperglycemia -repeat labs show much improvement with Na 133 Hypertension: BP fairly well controlled -Resume patient's lisinopril -Clonidine as needed DVT Prophylaxis: Heparin sq Discharge Planning: Possible discharge today if BG better controlled and after seen by Endocrinology.
[2017-09-29] MEDS: Polyethylene Glycol 3350 17 GM Packet PO SCH (09:29)
[2017-09-29] MEDS: Heparin - SQ 10,000 UNITS/ML Vial SQ SCH ×2 (11:32→22:01)
[2017-09-29 12:56] LABS: Anion Gap 4 meq/L (5-15); Blood Urea Nitrogen 14 mg/dL (7-18); Calcium 8.7 mg/dL (8.5-10.1); Carbon Dioxide 29.3 meq/L (21.0-32.0); Chloride 102 meq/L (98-107); Glomerular Filtration Rate Greater Than 89 mL/min (>89); Glucose,Random 306 mg/dL (74-106); Potassium 4.8 meq/L (3.5-5.1); Sodium 135 meq/L (136-145)
--- NOTE | 2017-09-29 14:24 | P.DIET ---
Nutritional Evaluation Type of nutrition evaluation: initial Nutrition screening: [facility] [place] (09/27 Diet Education for Diabetes) Subjective Subjective Comments: Pt states he tries to keep his sugars under control but he missed his Dr appt and then started eating whatever he wanted. States he is really going to try to follow my diet guidelines and not let his sugar get high like this again. Assessment Assessment: Pt educated on the basic nutrition guidelines for diabetes. I used pictures and demonstrated simple ways of measuring out portion sizes for food. Reviewed carbohydrate foods to control as well as foods that are low in carbs or have no carbs. Question patient's ability to do any more than just the basics. Provided written guidelines for him. He would benefit from outpatient diabetes education.
[2017-09-29] MEDS: Insulin Detemir Inj 1,000 UNIT/10 ML Vial SQ SCH (21:59)
[2017-09-30] MEDS: Sod Chloride 0.9% Inj 1,000 ML IV.CONT SCH ×2 (02:40→08:48)
[2017-09-30] MEDS: Insulin NovoLOG Aspart Correctional Sugar Inj SQ SCH ×2 (03:28→09:06)
--- NOTE | 2017-09-30 09:19 | P.PN ---
Physical Exam Vital signs: Vital Signs 09/29/17 12:03 09/29/17 15:57 09/29/17 19:17 Temperature 98.2 F 97.8 F 97.9 F Pulse Rate 70 78 91 H Respiratory Rate 20 18 17 Blood Pressure 128/62 134/71 131/66 Pulse Oximetry 100 99 09/29/17 23:33 09/30/17 03:20 09/30/17 07:38 Temperature 98.1 F 97.9 F 98.2 F Pulse Rate 80 71 71 Respiratory Rate 16 16 16 Blood Pressure 133/58 L 140/65 139/71 Pulse Oximetry 98 97 98 Intake & Output 09/29/17 09/30/17 09/30/17 18:59 06:59 18:59 Intake Total 1000 / 1000 3304 / 3304 176 / 176 Output Total 1200 / 1200 Balance 1000 / 1000 2104 / 2104 176 / 176 Intake: IV 1000 / 1000 2824 / 2824 176 / 176 NS Inj 1,000 ML @ 150 mls/hr IV 1000 / 1000 2824 / 2824 176 / 176 .CONT .Q6H40M [facility] Rx#:[id number] Oral 480 / 480 Output: Urine 1200 / 1200 Other: Date of Last Bowel Movement 09/29/17 # Bowel Movements 1 Results - Labs CBC & Chem 7: 09/28/17 12:07 09/29/17 11:30 Laboratory Results - last 24 hr 09/29/17 09/29/17 09/29/17 11:30 12:52 17:48 Sodium 135 L Potassium 4.8 Chloride 102 Carbon Dioxide 29.3 Anion Gap 4 L BUN 14 Creatinine 0.88 Estimated GFR Greater than 89 POC Glucose 331 H 279 H Random Glucose 306 H Calcium 8.7 09/29/17 09/30/17 09/30/17 20:27 02:05 08:28 Sodium Potassium Chloride Carbon Dioxide Anion Gap BUN Creatinine Estimated GFR POC Glucose 323 H 109 115 H Random Glucose Calcium
[2017-09-30] MEDS ORDERED: Insulin Detemir Inj 1,000 UNIT/10 ML Vial SQ SCH (10:00)
--- NOTE | 2017-09-30 11:18 | P.DS ---
Date of admission: 09/27/17 20:36 Primary care physician: No Primary Care Physician Attending physician on discharge: Ruddy Patkasandra Anticipated date of discharge: 09/30/17 Brief History from admission: 47-year-old male with a past medical history significant for morbid obesity, diabetes mellitus (uncontrolled) and hypertension presents the emergency department for evaluation of abdominal pain. The patient was recently hospitalized for similar symptoms and was found to be hyperglycemic. He reports compliance with his insulin and metformin. Despite that his blood sugar was in the 500s at home. She department his blood sugar was 501. Despite treatment with IV and subcu insulin and IV fluids the patient's blood sugar did not drop below 355. He reports resolution of pain. He denies any chest pain or shortness of breath. No diarrhea. No fevers/chills. No lateralizing signs/symptoms. DS: Diagnosis - Discharge Diagnosis (1) DM (diabetes mellitus) Status: Acute (2) Hyperglycemia due to type 2 diabetes mellitus Status: Acute (3) Morbid obesity Status: Acute DS: Medications - Discharge Medications Prescriptions: chlorhexidine gluconate [Peridex] 15 ml MUCOUS MEM BID #473 ml insulin detemir U-100 [Levemir U-100 Insulin] 25 unit SUB-Q BID 30 Days #2 pen insulin regular human [Novolin R Regular U-100 Insuln] 20 units SUB-Q BID@0800, 1700 30 Days #1 bottle lisinopril 10 mg PO DAILY #30 tab metformin [Glucophage] 500 mg PO BIDPC #60 tab penicillin V potassium 500 mg PO Q6H 10 Days #40 tab DS: Summary Hospital Course: 47-year-old male with a past medical history significant for morbid obesity, diabetes mellitus (uncontrolled) and hypertension presents the ED for evaluation of abdominal pain. The patient was recently hospitalized for similar symptoms and was found to be hyperglycemic. He reports compliance with his insulin and metformin. Despite that his blood sugar was in the 500s at home. industrial engineering analyst and final expense agent consulted. Patient does not comply with dietary requirements for his diabetes. Restarted his Levemir and switch to dose to 25 units twice a day with Novolin R 20 units twice daily. His blood glucose has significantly improved. We started him on metformin 500 mg twice a day. Patient came in with acute kidney injury and has received IV fluids. Current creatinine has improved. Restarted his medications including metformin and lisinopril. Continue to avoid nephrotoxins. He needs to follow-up with his PCP Dr. Lin. Also needs to follow-up with endocrinology to further adjust his medications. Discussed with patient extensively not to run out with insulin. His current hemoglobin A1c was tested and was 13.9. Patient's overall felt a lot better. Walking around the unit without any symptomatology. Patient has met maximal benefits of hospitalization. Clinically stable for discharge. - Time Spent with Patient Total time spent providing and/or coordinating discharge services: Less than 30 minutes - Quality: VTE Deep Vein Thrombosis/Pulmonary Embolism Present on Admission: No Exam Vital signs: Vital Signs 09/29/17 12:03 09/29/17 15:57 09/29/17 19:17 Temperature 98.2 F 97.8 F 97.9 F Pulse Rate 70 78 91 H Respiratory Rate 20 18 17 Blood Pressure 128/62 134/71 131/66 Pulse Oximetry 100 99 09/29/17 23:33 09/30/17 03:20 09/30/17 07:38 Temperature 98.1 F 97.9 F 98.2 F Pulse Rate 80 71 71 Respiratory Rate 16 16 16 Blood Pressure 133/58 L 140/65 139/71 Pulse Oximetry 98 97 98 Intake & Output 09/29/17 09/30/17 09/30/17 18:59 06:59 18:59 Intake Total 1000 / 1000 3304 / 3304 176 / 176 Output Total 1200 / 1200 Balance 1000 / 1000 2104 / 2104 176 / 176 Intake: IV 1000 / 1000 2824 / 2824 176 / 176 NS Inj 1,000 ML @ 150 mls/hr IV 1000 / 1000 2824 / 2824 176 / 176 .CONT .Q6H40M [facility] Rx#:[id number] Oral 480 / 480 Output: Urine 1200 / 1200 Other: Date of Last Bowel Movement 09/29/17 # Bowel Movements 1 Narrative: GENERAL: This is a morbidly obese, well-developed patient, in no apparent distress. SKIN: Warm and dry HEENT: Normocephalic. Pupils equal round and reactive. Nose without bleeding. Airway patent. NECK: Trachea midline. Supple. CARDIOVASCULAR: Regular rate and rhythm without murmurs, gallops, or rubs. RESPIRATORY: Clear to auscultation. Breath sounds equal bilaterally. No wheezes , rales, or rhonchi. GASTROINTESTINAL: Abdomen soft, non-tender, obese. Bowel Sounds normoactive x4. MUSCULOSKELETAL: Extremities without clubbing, cyanosis, or edema. NEUROLOGICAL: Awake and alert. Oriented to time, place, person. No focal neuro deficit. Moves all extremities. Normal speech. Results Procedures completed during hospitalization: None Labs on day of discharge: Labs from last 24 hours 09/30/17 09/30/17 09/29/17 08:28 02:05 20:27 Sodium Potassium Chloride Carbon Dioxide Anion Gap BUN Creatinine Estimated GFR POC Glucose 115 H 109 323 H Random Glucose Calcium 09/29/17 09/29/17 09/29/17 17:48 12:52 11:30 Sodium 135 L Potassium 4.8 Chloride 102 Carbon Dioxide 29.3 Anion Gap 4 L BUN 14 Creatinine 0.88 Estimated GFR Greater than 89 POC Glucose 279 H 331 H Random Glucose 306 H Calcium 8.7 Discharge Plan - Discharge Disposition Patient Disposition: 01 Discharge Home - Discharge Condition Condition: Stable - Discharge Order Discharge Orders: Discharge Order (Routine); Ordered 09/30/17 Ordered By: Fabrizio High - Physicians Team Primary Care Provider: Primary Care Amanda Mccoy Attending Provider: Ruddy Campos Other Providers: Tobias Grijalva MD
== END 2017-09-30 12:00 | disposition home or self-care (01) ==
LOC: NEDA 11:40 → NEPD 11:40 → NEPGCP 11:40 → NEDA 23:33 → NEPGCP 23:39
PROVIDERS: ADMIT Internal Medicine; ATTEND Internal Medicine
DX: E87.5 Hyperkalemia; E87.1 Hypo-osmolality and hyponatremia; I10 Essential (primary) hypertension; Z79.4 Long term (current) use of insulin; Z90.49 Acquired absence of other specified parts of digestive tract; E11.65 Type 2 diabetes mellitus with hyperglycemia; E66.01 Morbid (severe) obesity due to excess calories; Z87.891 Personal history of nicotine dependence; Z68.43 Body mass index [BMI] 50.0-59.9, adult; N17.9 Acute kidney failure, unspecified; R94.31 Abnormal electrocardiogram [ECG] [EKG]